=== PATIENT | male | born 1965 ===

== ENCOUNTER 2017-09-08 02:35 | Emergency (ER) | payer OTHER ==
[2017-09-08 02:36] VITALS: BMI 25.0
--- NOTE | 2017-09-08 02:43 | C.PDOC ---
History Of Present Illness 51 year old male is brought to the ED by EMS for evaluation. Patient is intoxicated states he drank red wine today, that he is an alcoholic as well. Patient denies SI/HI, hallucinations, CP, SOB, fever, chills. Time Seen by Provider: 09/08/17 02:42 Chief Complaint (Nursing): Substance Abuse History Per: Patient, EMS History/Exam Limitations: intoxication Onset/Duration Of Symptoms: Hrs Current Symptoms Are (Timing): Still Present Suicide/Self Injury Attempted (Context): None Modifying Factor(s): Alcohol Associated Symptoms: denies: Depression, Suicidal Thoughts, Suicidal Plan Involuntary Hold By: None Recent travel outside of the [place]: No Additional History Per: Patient, EMS Past Medical History Reviewed: Historical Data, Nursing Documentation, Vital Signs Vital Signs: Last Vital Signs Temp 100.1 F H 09/08/17 02:43 Pulse 110 H 09/08/17 02:43 Resp 16 09/08/17 02:43 BP 152/90 H 09/08/17 02:43 Pulse Ox 96 09/08/17 03:04 - Medical History PMH: Anxiety, Kidney Stones, Chronic Kidney Disease Denies: Diabetes, Hepatitis, HIV, HTN, Seizures, Sexually Transmitted Disease Surgical History: No Surg Hx Family History: States: Unknown Family Hx - Social History Hx Alcohol Use: Yes Hx Substance Use: Yes (COCAINE SNIFF) Review Of Systems Constitutional: Negative for: Fever, Chills Cardiovascular: Negative for: Chest Pain Respiratory: Negative for: Shortness of Breath Gastrointestinal: Negative for: Nausea, Vomiting Skin: Negative for: Rash Psych: Negative for: Depression, Suicidal ideation Physical Exam - Physical Exam Appears: Non-toxic, No Acute Distress Skin: Warm, Dry Head: Normacephalic Eye(s): bilateral: Normal Inspection Oral Mucosa: Moist Neck: Supple Chest: Symmetrical Cardiovascular: Rhythm Regular Respiratory: No Rales, No Rhonchi, No Wheezing Gastrointestinal/Abdominal: Soft, No Tenderness, No Guarding, No Rebound Extremity: Bilateral: Atraumatic, Normal Color And Temperature, Normal ROM Neurological/Psych: Oriented x3, Normal Speech Gait: Steady ED Course And Treatment O2 Sat by Pulse Oximetry: 96 (ON RA) Pulse Ox Interpretation: Normal Reevaluation Time: 04:49 Reassessment Condition: Improved Disposition Counseled Patient/Family Regarding: Studies Performed, Diagnosis, Need For Followup - Disposition Referrals: [facility] [Outside] Disposition: HOME/ ROUTINE Disposition Time: 02:43 Condition: FAIR Instructions: Alcohol Abuse and Alcoholism (DC) Forms: [facility] (Frisian) - Clinical Impression Clinical Impression: Alcohol abuse with intoxication - Scribe Statement The provider has reviewed the documentation as recorded by the Scribe Glen Grimes All medical record entries made by the Scribe were at my direction and personally dictated by me. I have reviewed the chart and agree that the record accurately reflects my personal performance of the history, physical exam, medical decision making, and the department course for this patient. I have also personally directed, reviewed, and agree with the discharge instructions and disposition.
[2017-09-08 02:45] VITALS: RESP 16; O2SAT 96
[2017-09-08 04:53] VITALS: BP 137/85; PULSE 98; TEMP 98.9
== END 2017-09-08 05:20 | disposition home or self-care (01) ==
LOC: C.ER 02:35
DX: F10.129 Alcohol abuse with intoxication, unspecified (principal); N18.9 Chronic kidney disease, unspecified

== ENCOUNTER 2017-09-11 05:36 | Emergency (ER) | payer OTHER ==
[2017-09-11 05:37] VITALS: BMI 25.0
[2017-09-11 05:47] VITALS: RESP 18
--- NOTE | 2017-09-11 05:57 | C.PDOC ---
History Of Present Illness Patient presents to the ER via EMS for acute ETOH intoxication. Patient is requesting a place to stay until sober. Denies any physical complaints at this time. Time Seen by Provider: 09/11/17 05:56 Chief Complaint (Nursing): Substance Abuse History Per: Patient History/Exam Limitations: no limitations Onset/Duration Of Symptoms: Hrs Current Symptoms Are (Timing): Still Present Suicide/Self Injury Attempted (Context): None Modifying Factor(s): Alcohol Severity: None Pain Scale Rating Of: 0 Associated Symptoms: denies: Depression, Suicidal Thoughts Involuntary Hold By: None Recent travel outside of the [place]: No Past Medical History Reviewed: Historical Data, Nursing Documentation, Vital Signs Vital Signs: Last Vital Signs Temp 99.9 F H 09/11/17 05:43 Pulse 119 H 09/11/17 05:43 Resp 18 09/11/17 05:43 BP 150/96 H 09/11/17 05:43 Pulse Ox 97 09/11/17 05:57 - Medical History PMH: Anxiety, Diverticulitis, Kidney Stones, Chronic Kidney Disease Surgical History: No Surg Hx Family History: States: No Known Family Hx - Social History Hx Alcohol Use: Yes Hx Substance Use: Yes (COCAINE SNIFF) Review Of Systems Constitutional: Negative for: Fever, Chills Cardiovascular: Negative for: Chest Pain, Palpitations Respiratory: Negative for: Cough, Shortness of Breath Gastrointestinal: Negative for: Nausea, Vomiting Physical Exam - Physical Exam Appears: Non-toxic, Other (ETOH on breath) Skin: Warm, Dry Head: Normacephalic Oral Mucosa: Moist Chest: Symmetrical, No Tenderness Cardiovascular: Rhythm Regular Respiratory: No Rales, No Rhonchi, No Wheezing Gastrointestinal/Abdominal: Soft, No Tenderness Neurological/Psych: Oriented x3 ED Course And Treatment O2 Sat by Pulse Oximetry: 97 (Room air) Pulse Ox Interpretation: Normal Disposition Counseled Patient/Family Regarding: Studies Performed, Diagnosis - Disposition Disposition Time: 05:56 Condition: FAIR Instructions: Alcohol Abuse and Alcoholism (DC) Forms: [facility] (Nepali) - Clinical Impression Clinical Impression: Alcohol abuse with intoxication - Scribe Statement The provider has reviewed the documentation as recorded by the Scribe Walt Chau All medical record entries made by the Scribe were at my direction and personally dictated by me. I have reviewed the chart and agree that the record accurately reflects my personal performance of the history, physical exam, medical decision making, and the department course for this patient. I have also personally directed, reviewed, and agree with the discharge instructions and disposition. Physician Patient Turnover Patient Signed Over To: Carri Kang Handoff Comments: pending sobriety and dispostion
[2017-09-11 07:32] VITALS: BP 134/88; PULSE 96; TEMP 99; O2SAT 96
--- NOTE | 2017-09-11 18:07 | CARD ---
APPROVED REPORT EKG Measurement Heart [id number] NC [id number] [id number] <Conclusion> Normal sinus rhythm Left bundle branch block Abnormal ECG
== END 2017-09-11 07:25 | disposition left against medical advice (07) ==
LOC: C.ER 05:36
DX: F10.129 Alcohol abuse with intoxication, unspecified (principal); F41.9 Anxiety disorder, unspecified

== ENCOUNTER 2017-09-30 22:30 | Emergency (ER) | payer OTHER ==
[2017-09-30 22:31] VITALS: BMI 25.0
[2017-09-30 22:50] VITALS: TEMP 98.9
--- NOTE | 2017-10-01 00:11 | C.PDOC ---
History Of Present Illness <Nicola Lopez - Last Filed: 10/01/17 01:05> <Kajal Burnette - Last Filed: 10/01/17 06:56> <Dakotah Dillon M - Last Filed: 10/01/17 09:14> 51 y/o male presents to ED for intoxication at home. Patient's mother called ambulance for patient. This is the patient's 4th visit to the ER this month for intoxication. Patient is positive for Benzo and his alcohol level is at 250. Denies injuries or physical complaints. (Nicola Lopez) History Per: Patient, EMS History/Exam Limitations: no limitations Onset/Duration Of Symptoms: Hrs Current Symptoms Are (Timing): Still Present Suicide/Self Injury Attempted (Context): None Modifying Factor(s): Alcohol Associated Symptoms: denies: Anger, Suicidal Thoughts, Suicidal Plan Recent travel outside of the [place]: No <Nicola Lopez - Last Filed: 10/01/17 01:05> <aKjal Burnette - Last Filed: 10/01/17 06:56> <Dakotah Dillon M - Last Filed: 10/01/17 09:14> Time Seen by Provider: 09/30/17 22:40 Chief Complaint (Nursing): Substance Abuse Past Medical History Reviewed: Historical Data, Nursing Documentation, Vital Signs - Medical History PMH: Anxiety, Diverticulitis, Kidney Stones, Chronic Kidney Disease Surgical History: Appendectomy Family History: States: Unknown Family Hx - Social History Hx Alcohol Use: Yes Hx Substance Use: Yes - Immunization History Hx Tetanus Toxoid Vaccination: No Hx Influenza Vaccination: No Hx Pneumococcal Vaccination: No <Nicola Lopez - Last Filed: 10/01/17 01:05> Vital Signs: Last Vital Signs Temp 98.9 F 09/30/17 22:46 Pulse 98 H 10/01/17 07:01 Resp 16 10/01/17 07:01 BP 136/89 10/01/17 07:01 Pulse Ox 95 10/01/17 07:01 Review Of Systems Constitutional: Negative for: Fever, Chills Gastrointestinal: Negative for: Nausea, Vomiting, Abdominal Pain, Diarrhea Skin: Negative for: Rash Neurological: Negative for: Weakness, Numbness Psych: Negative for: Suicidal ideation <Nicola Lopez - Last Filed: 10/01/17 01:05> Physical Exam - Physical Exam Appears: Non-toxic, No Acute Distress, Other (No injuries or trauma; intoxicated ) Skin: Normal Color, Warm, Dry Head: Atraumatic, Normacephalic Eye(s): bilateral: Normal Inspection, PERRL, EOMI Nose: Normal, No Discharge, No Deformity Oral Mucosa: Moist Neck: Supple Chest: Symmetrical, No Tenderness Cardiovascular: Rhythm Regular, No Murmur Respiratory: Normal Breath Sounds, No Decreased Breath Sounds, No Rales, No Rhonchi, No Wheezing Gastrointestinal/Abdominal: Normal Exam, Soft, No Tenderness, No Distention Extremity: Normal ROM, No Deformity Extremity: Bilateral: Atraumatic, Normal Color And Temperature, Normal ROM Pulses: Left Radial: Normal, Right Radial: Normal Neurological/Psych: Oriented x3, Normal Speech Gait: Steady <Nicola Lopez - Last Filed: 10/01/17 01:05> ED Course And Treatment O2 Sat by Pulse Oximetry: 95 (RA) Pulse Ox Interpretation: Normal <Nicola Lopez - Last Filed: 10/01/17 01:05> Progress <Nicola Lopez - Last Filed: 10/01/17 01:05> <Kajal Burnette - Last Filed: 10/01/17 06:56> <Dakotah Dillon M - Last Filed: 10/01/17 09:14> - Re-Evaluation Re-evaluation Note: 10/01/17 02:18 PT INCREASINGLY UNCOOPERATIVE W STAFF, ELOPEMENT RISK. PERSIST CLIN INTOX W SLURRED SPEECH AND UNSTEADY GAIT. PT UNRESPONSIVE TO MULTIPLE VERBAL INTERVENTION. GEODON TO BE GIVEN. 10/01/17 03:00 NO IMPROVE W GEODON. WILL DOSE ATIVAN. 10/01/17 06:27 PERSIST SOMNALENCE. VSS. AROUSE TO PAIN STIM. 10/01/17 06:56 S/O DR DILLON PENDING SOBRIETY, DISPO (Kajal Burnette) Medical Decision Making <Nicola Lopez - Last Filed: 10/01/17 01:05> <Kajal Burnette - Last Filed: 10/01/17 06:56> <Dakotah Dillon M - Last Filed: 10/01/17 09:14> Medical Decision Making: no labs/w/u required for typical presentation 0000: walked alone to bathroom to urinate successfuly without assistance. 0100: signed over to overnight MD pending dispo in AM (Nicola Lopez) Disposition - Disposition Disposition Time: 01:00 <Nicola Lopez - Last Filed: 10/01/17 01:05> <Kajal Burnette - Last Filed: 10/01/17 06:56> <Dakotah Dillon - Last Filed: 10/01/17 09:14> - Disposition Condition: GOOD Forms: [facility] (Bahraini) - Clinical Impression Clinical Impression: Alcohol abuse - Scribe Statement The provider has reviewed the documentation as recorded by the Scribe <Nicola Lopez - Last Filed: 10/01/17 01:05> <Kajal Burnette - Last Filed: 10/01/17 06:56> <Dakotah Dillon - Last Filed: 10/01/17 09:14> - Scribe Statement Delta Ramos All medical record entries made by the Scribe were at my direction and personally dictated by me. I have reviewed the chart and agree that the record accurately reflects my personal performance of the history, physical exam, medical decision making, and the department course for this patient. I have also personally directed, reviewed, and agree with the discharge instructions and disposition. (Nicola Lopez) Physician Patient Turnover Patient Signed Over To: Kajal Burnette Handoff Comments: dispo in AM when sober- plan to d/c home. <Nicola Lopez - Last Filed: 10/01/17 01:05> Addendum <Nicola Lopez - Last Filed: 10/01/17 01:05> <Dakotah Dillon - Last Filed: 10/01/17 09:14> Addendum: 10/01/17 09:13 received patient in s/o pending sobriety. Patient is ambulating with steady gait. No complaints. Will discharge home to follow up with pmd in 2 days. (Dakotah Dillon) Disposition <Nicola Lopez - Last Filed: 10/01/17 01:05> Disposition Time: 09:14 <Dakotah Dillon - Last Filed: 10/01/17 09:14> Clinical Impression: Alcohol abuse Condition: STABLE Stand Alone Forms: [facility] (Bahraini), General Discharge Instructions
[2017-10-01 09:27] VITALS: BP 130/80; PULSE 73; RESP 20; O2SAT 98
== END 2017-10-01 09:15 | disposition home or self-care (01) ==
LOC: C.ER 22:30
DX: F10.129 Alcohol abuse with intoxication, unspecified (principal); Y90.9 Presence of alcohol in blood, level not specified
CPT/HCPCS: 82948; 96372; 99285; J2060; J3486

== ENCOUNTER 2017-10-01 21:38 | Emergency (ER) | payer OTHER ==
[2017-10-01 21:38] VITALS: BMI 25.0
--- NOTE | 2017-10-01 22:26 | C.PDOC ---
History Of Present Illness <Kajal Burnette - Last Filed: 10/02/17 00:47> <Nicola Lopez E - Last Filed: 10/02/17 04:46> 51 year old male is brought to the ED by EMS for intoxication. Patient has multiple prior visits to the ED for similar presentation. Patient admits to drinking alcohol today. Patient denies SI/HI, hallucinations, other drug abuse. (Vasile,Kajal) History Per: Patient History/Exam Limitations: no limitations Onset/Duration Of Symptoms: Hrs Current Symptoms Are (Timing): Still Present Suicide/Self Injury Attempted (Context): None Modifying Factor(s): Alcohol Associated Symptoms: denies: Depression, Suicidal Thoughts, Suicidal Plan Involuntary Hold By: None Recent travel outside of the [place]: No Additional History Per: Patient, EMS <Kajal Burnette - Last Filed: 10/02/17 00:47> <Nicola Lopez - Last Filed: 10/02/17 04:46> Time Seen by Provider: 10/01/17 22:22 Chief Complaint (Nursing): Substance Abuse Past Medical History Reviewed: Historical Data, Nursing Documentation, Vital Signs - Medical History PMH: Anxiety, Diverticulitis, Kidney Stones, Chronic Kidney Disease Denies: Diabetes, Hepatitis, HIV, HTN, Seizures, Sexually Transmitted Disease Surgical History: Appendectomy Family History: States: Unknown Family Hx - Social History Hx Alcohol Use: Yes Hx Substance Use: Yes - Immunization History Hx Tetanus Toxoid Vaccination: No Hx Influenza Vaccination: No Hx Pneumococcal Vaccination: No <Kajal Burnette - Last Filed: 10/02/17 00:47> Vital Signs: Last Vital Signs Temp 98.9 F 10/01/17 21:46 Pulse 105 H 10/01/17 21:46 Resp 14 10/01/17 21:46 BP 109/74 10/01/17 21:46 Pulse Ox 96 10/02/17 00:47 Review Of Systems Constitutional: Negative for: Fever, Chills Cardiovascular: Negative for: Chest Pain, Palpitations Respiratory: Negative for: Cough, Shortness of Breath Gastrointestinal: Negative for: Nausea, Vomiting, Abdominal Pain Neurological: Negative for: Weakness, Numbness Psych: Negative for: Depression, Suicidal ideation <Kajal Burnette - Last Filed: 10/02/17 00:47> Physical Exam - Physical Exam Appears: Non-toxic, No Acute Distress, Other (intoxicated) Skin: Normal Color, Warm, Dry Head: Atraumatic, Normacephalic Eye(s): bilateral: Normal Inspection Oral Mucosa: Moist Neck: Normal ROM, Supple Chest: Symmetrical Cardiovascular: Rhythm Regular Respiratory: Normal Breath Sounds, No Rales, No Rhonchi, No Wheezing Gastrointestinal/Abdominal: Soft, No Tenderness, No Guarding, No Rebound Extremity: Normal ROM, No Tenderness, No Swelling Neurological/Psych: Oriented x3, Normal Speech Gait: Steady <Kajal Burnette - Last Filed: 10/02/17 00:47> ED Course And Treatment O2 Sat by Pulse Oximetry: 96 (ON RA) Pulse Ox Interpretation: Normal <Kajal Burnette - Last Filed: 10/02/17 00:47> Progress Note: signed over @ 0100, pending sobriety. multiple overnight intoxicated ED evals, including last night. pt given librium 50 mg @ 0130 and 0400 for anxiety and to avoid withdrawal. Repeatedely offered Detox, pt not interested. 0445: asks for d/c <Nicola Lopez - Last Filed: 10/02/17 04:46> Medical Decision Making <Kajal Burnette - Last Filed: 10/02/17 00:47> <Nicola Lopez - Last Filed: 10/02/17 04:46> Medical Decision Making: Impression: intoxicated (Kajal Burnette) Disposition - Disposition Disposition Time: 01:00 <Kajal Burnette - Last Filed: 10/02/17 00:47> Doctor Will See Patient In The: Office Counseled Patient/Family Regarding: Studies Performed, Diagnosis <Nicola Lopez - Last Filed: 10/02/17 04:46> - Disposition Disposition: HOME/ ROUTINE Condition: GOOD Forms: [facility] (Central African) - Clinical Impression Clinical Impression: Alcohol intoxication, Alcohol abuse with intoxication - Scribe Statement The provider has reviewed the documentation as recorded by the Scribe <Kajal Burnette - Last Filed: 10/02/17 00:47> <Nicola Lopez - Last Filed: 10/02/17 04:46> - Scribe Statement Glen Grimes All medical record entries made by the Scribe were at my direction and personally dictated by me. I have reviewed the chart and agree that the record accurately reflects my personal performance of the history, physical exam, medical decision making, and the department course for this patient. I have also personally directed, reviewed, and agree with the discharge instructions and disposition. (Kajal Burnette) Physician Patient Turnover Patient Signed Over To: Nicola Lopez Handoff Comments: FU SOBRIETY, DISPO <Kajal Burnette - Last Filed: 10/02/17 00:47>
[2017-10-01 23:42] VITALS: TEMP 98.9; O2SAT 96
[2017-10-02 04:48] VITALS: BP 133/89; PULSE 90; RESP 20
== END 2017-10-02 04:53 | disposition home or self-care (01) ==
LOC: C.ER 21:38
DX: F10.129 Alcohol abuse with intoxication, unspecified (principal)

== ENCOUNTER 2017-10-10 05:22 | Inpatient (IN) | payer OTHER ==
[2017-10-10 05:22] VITALS: BMI 25.0
[2017-10-10] MEDS ORDERED: Tdap Vaccine 0.5 ml Vial (10-64 yrs) IM ONE ×2 (06:07→06:56)
[2017-10-10] MEDS ORDERED: Bacitracin 500 Units/gm Oint Foilpak UD TOP ONE (06:07)
--- NOTE | 2017-10-10 06:07 | C.PDOC ---
History Of Present Illness 51 year old male with PMHx of ETOH abuse presents to the ED for evaluation. Patient reports he stopped drinking yesterday and also fell and hit his head yesterday as well. Patient c/o sternal chest pain that started today at 03:00 . Patient is asking for something to help him sleep, says he hasn't slept in 2 days. Patient has been seen multiple times in the past for alcohol intoxication , but today he states he did not drink. Patient has abrasions to face and forehead, given recent fall head CT was ordered. Patient neck pain, visual changes, dizziness. pt is a poor historian. Time Seen by Provider: 10/10/17 05:54 Chief Complaint (Nursing): Substance Abuse History Per: Patient History/Exam Limitations: intoxication Onset/Duration Of Symptoms: Hrs Current Symptoms Are (Timing): Still Present Suicide/Self Injury Attempted (Context): None Modifying Factor(s): Alcohol Associated Symptoms: denies: Depression, Suicidal Thoughts, Suicidal Plan Involuntary Hold By: None Recent travel outside of the [place]: No Additional History Per: Patient Past Medical History Reviewed: Historical Data, Nursing Documentation, Vital Signs Vital Signs: Last Vital Signs Temp 100.1 F H 10/10/17 05:42 Pulse 122 H 10/10/17 05:42 Resp 22 10/10/17 05:42 BP 138/99 H 10/10/17 05:42 Pulse Ox 97 10/10/17 07:21 - Medical History PMH: Anxiety, Diverticulitis, Kidney Stones, Chronic Kidney Disease Denies: Diabetes, Hepatitis, HIV, HTN, Seizures, Sexually Transmitted Disease Surgical History: Appendectomy Family History: States: Unknown Family Hx - Social History Hx Alcohol Use: Yes Hx Substance Use: Yes - Immunization History Hx Tetanus Toxoid Vaccination: No Hx Influenza Vaccination: No Hx Pneumococcal Vaccination: No Review Of Systems Constitutional: Negative for: Fever, Chills Cardiovascular: Positive for: Chest Pain. Negative for: Palpitations Respiratory: Negative for: Cough, Shortness of Breath Gastrointestinal: Positive for: Nausea. Negative for: Vomiting, Abdominal Pain Genitourinary: Negative for: Dysuria Musculoskeletal: Negative for: Neck Pain Skin: Positive for: Other (abrasions). Negative for: Rash Neurological: Negative for: Weakness, Headache, Dizziness Psych: Negative for: Depression, Suicidal ideation Physical Exam - Physical Exam Appears: Non-toxic, Other (unkempt, odor of etoh present) Skin: Normal Color, Warm, Dry, Other (multiple abrasion on various stages of healing located on hands, legs, face) Head: Normacephalic, Abrasion (face and forehead) Eye(s): bilateral: Normal Inspection, PERRL, EOMI Oral Mucosa: Moist Tongue: Other (tremors to tongue) Neck: Normal ROM, No Midline Cervical Tenderness, Supple Chest: Symmetrical Cardiovascular: Rhythm Regular (tachycardic) Respiratory: Normal Breath Sounds, No Rales, No Rhonchi, No Wheezing Gastrointestinal/Abdominal: Soft, No Tenderness, No Guarding, No Rebound Back: Other (erythema to left mid back, non tender) Extremity: Normal ROM, No Tenderness, Capillary Refill (< 2 seconds), Swelling ( left elbow with ), Other (tremors to hands) Pulses: Left Radial: Normal, Right Radial: Normal, Left Dorsalis Pedis: Normal, Right Dorsalis Pedis: Normal Neurological/Psych: Oriented x3, Normal Speech, Normal Cognition, Normal Motor, Normal Sensation, Other (bilateral hands shaking) Gait: Steady ED Course And Treatment - Laboratory Results Result Diagrams: 10/10/17 06:26 0818 06:26 ECG: Interpreted By Me, Viewed By Me ECG Rhythm: Sinus Tachycardia, L BBB ECG Interpretation: No Changes From Prior Rate From EC (BPM) O2 Sat by Pulse Oximetry: 97 (ON RA) Pulse Ox Interpretation: Normal Medical Decision Making Medical Decision Making: Impression: abrasions, chest pain, s/p fall, ?etoh w/d; pt tachycardic wiht low grade fever- sepsis screening labs. Plan: * VBG * CT head * EKG * Labs * CXR * Tetanus immunization * Bacitracin * IV fluids * Blood culture * Left elbow X-Ray * UA \ 0636 code sepsis called. [address] Schwartz; discussed with Dr Flores. 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 - Scribe Statement The provider has reviewed the documentation as recorded by the Scribe Glen Grimes All medical record entries made by the Scribe were at my direction and personally dictated by me. I have reviewed the chart and agree that the record accurately reflects my personal performance of the history, physical exam, medical decision making, and the department course for this patient. I have also personally directed, reviewed, and agree with the discharge instructions and disposition. Physician Patient Turnover Patient Signed Over To: Courtney Barraza Handoff Comments: f/u with metal ceiling hanger and admit to appopriate
[2017-10-10] MEDS ORDERED: Multivitamin (MVI) 10 ML, Thiamine 100 MG, Folic Acid 1 MG in Sodium Chloride 0.9% 1,00... IV ONE (06:08)
[2017-10-10 06:29] LABS: BASO % 0.3 % (0.0-2.0); EOS % 0.3 % (0.0-4.0); HEMOGLOBIN 13.3 g/dL (12.0-18.0); LYMPH # 0.6 K/uL (1.0-4.3); LYMPH % 11.5 % (20.0-40.0); MEAN CELL VOLUME 93.3 fL (80.0-94.0); MEAN CORPUSCULAR HGB CONC 35.4 g/dL (33.0-37.0); MEAN PLATELET VOLUME 9.1 fL (7.2-11.7); MONO # 0.5 K/uL (0.0-0.8); MONO % 10.6 % (0.0-10.0); NEUT # 3.8 K/uL (1.8-7.0); NEUT % 77.3 % (50.0-75.0); NRBC % 0.1 % (0.0-2.0); RBC 4.04 Mil/uL (4.40-5.90); RED CELL DISTRIBUTION WIDTH 14.6 % (11.5-14.5); WHITE BLOOD COUNT 4.9 K/uL (4.8-10.8)
[2017-10-10 06:31] LABS: VENOUS BLOOD GAS BASE EXCESS 2.9 mmol/L (0.0-2.0); VENOUS BLOOD GAS PCO2 34 mmHg (40-60); VENOUS BLOOD GAS PO2 40 mm/Hg (30-55); VENOUS BLOOD PH 7.49 (7.32-7.43)
[2017-10-10] MEDS ORDERED: Aztreonam 2 GM in Sodium Chloride 0.9% 100 ML IVPB STA (06:37)
[2017-10-10] MEDS ORDERED: Vancomycin 1 gm/NS 200 ml 1 GM/200 ML BAG IVPB STA (06:37)
[2017-10-10] MEDS ORDERED: Sodium Chloride 0.9% 1,000 ML IV ONE (06:37)
[2017-10-10] MEDS ORDERED: Sodium Chloride 0.9% 1,000 ML ONE (06:40)
[2017-10-10] MEDS ORDERED: Potassium Chloride 20 mEq ER Tab PO STA (06:44)
[2017-10-10] MEDS ORDERED: Bacitracin 500 Units/gm Oint Foilpak UD ONE (06:55)
[2017-10-10 06:58] LABS: ALB/GLOB RATIO 1.3 (1.0-2.1); ALT/SGPT 205 U/L (21-72); AST/SGOT 629 U/L (17-59); BLOOD UREA NITROGEN 5 mg/dL (9-20); CALCIUM 7.9 mg/dl (8.6-10.4); GFR AFRICAN-AMERICAN > 60; GFR NON-AFRICAN AMERICAN > 60
[2017-10-10] MEDS ORDERED: Magnesium Sulfate 1 gm in D5W 1 GM/100 ML BAG IVPB ONE ×2 (07:02→08:40)
[2017-10-10] MEDS ORDERED: Benzoin Compound Tincture (60 ml) ONE (07:15)
[2017-10-10] MEDS: Magnesium Sulfate 1 gm in D5W 1 GM/100 ML BAG IVPB ONE ×2 (07:35→09:46)
[2017-10-10 07:53] LABS: PROTHROMBIN TIME 19.1 SECONDS (9.7-12.2)
[2017-10-10 07:54] LABS: INR 1.7
--- NOTE | 2017-10-10 08:22 | RAD ---
Date of service: 10/10/2017 PROCEDURE: CHEST RADIOGRAPH, 1 VIEW HISTORY: chest pain COMPARISON: None available. FINDINGS: LUNGS: The lungs are well inflated and clear. PLEURA: No pneumothorax or pleural fluid seen. CARDIOVASCULAR: Normal. OSSEOUS STRUCTURES: No significant abnormalities. VISUALIZED UPPER ABDOMEN: Normal. OTHER FINDINGS: None. IMPRESSION: No active pulmonary disease.
--- NOTE | 2017-10-10 08:28 | RAD ---
Date of service: 10/10/2017 PROCEDURE: Radiographs of the left elbow. HISTORY: abrasion and swelling COMPARISON: No prior. FINDINGS: BONES: Bone alignment and mineralization are normal. There is no acute displaced fracture or bone destruction. 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 SOFT TISSUES: Normal. JOINT EFFUSION: None. OTHER FINDINGS: None IMPRESSION: No acute fracture or dislocation.
[2017-10-10 08:36] LABS: SQUAMOUS EPITHIAL < 1 /hpf (0-5); URINE BILIRUBIN NEGATIVE (NEGATIVE); URINE BLOOD 1+ (NEGATIVE); URINE CLARITY Clear (Clear); URINE COLOR Yellow (YELLOW); URINE GLUCOSE (UA) NORMAL (Normal); URINE LEUKOCYTE ESTERASE NEG Leu/uL (Negative); URINE PROTEIN NEGATIVE (NEGATIVE)
[2017-10-10] MEDS: Sodium Chloride 0.9% 1,000 ML IV SCH ×2 (08:40→16:57)
[2017-10-10 08:57] LABS: BARBITURATES, UR NEGATIVE (NEGATIVE); OPIATES, UR NEGATIVE (NEGATIVE); PHENCYCLIDINE, UR NEGATIVE (NEGATIVE)
--- NOTE | 2017-10-10 09:08 | CT ---
Date of service: 10/10/2017 PROCEDURE: CT HEAD WITHOUT CONTRAST. HISTORY: ETOH abuse, Fall COMPARISON: None available. TECHNIQUE: Axial computed tomography images were obtained through the head/brain without intravenous contrast. Radiation dose: Total exam DLP = 1046.45 mGy-cm. This CT exam was performed using one or more of the following dose reduction techniques: Automated exposure control, adjustment of the mA and/or kV according to patient size, and/or use of iterative reconstruction technique. FINDINGS: HEMORRHAGE: No intracranial hemorrhage. BRAIN: Mccain-white matter differentiation is preserved. There is no mass, mass effect or abnormal extra-axial fluid collection. There is no territorial infarction. The midline sagittal structures are normal. VENTRICLES: There is mild age advanced global parenchymal volume loss and proportionate enlargement of the ventricles and cortical sulci. CALVARIUM: There is no calvarial fracture or extracranial soft tissue swelling. PARANASAL SINUSES: Predominantly clear. MASTOID AIR CELLS: Predominantly clear. OTHER FINDINGS: None. IMPRESSION: No acute intracranial abnormality. Mild global parenchymal volume loss, advanced for the patient's age. A preliminary report was provided by [employer] services.
[2017-10-10 09:27] LABS: BENZODIAZEPINES, UR POSITIVE (NEGATIVE)
--- NOTE | 2017-10-10 09:35 | CP.PCM.HP ---
History of Present Illness - History of Present Illness History of Present Illness: hx of alc abuse fell has abrasion face and l elbow has chest pain today didnot sleep for 2 days Present on Admission - Present on Admission Any Indicators Present on Admission: No Review of Systems - Review of Systems Systems not reviewed;Unavailable: Acuity of Condition - Constitutional Constitutional: Fatigue - EENT Eyes: As Per HPI Ears: As Per HPI Nose/Mouth/Throat: As Per HPI - Cardiovascular Cardiovascular: Chest Pain at Rest - Respiratory Respiratory: Dyspnea on Exertion - Gastrointestinal Gastrointestinal: As Per HPI - Genitourinary Genitourinary: As Per HPI - Musculoskeletal Additional comments: pain l elbo - Neurological Neurological: Frequent Falls - Psychiatric Psychiatric: As Per HPI - Endocrine Endocrine: As Per HPI - Hematologic/Lymphatic Hematologic: As Per HPI Past Patient History - Infectious Disease Hx of Infectious Diseases: None - Past Medical History & Family History Past Medical History?: Yes - Past Social History Smoking Status: Never Smoked - CARDIAC Hx Hypertension: No - PULMONARY Hx Tuberculosis: No - NEUROLOGICAL Hx Seizures: No - HEENT Hx HEENT Problems: No - RENAL Hx Chronic Kidney Disease: Yes Hx Kidney Stones: Yes - ENDOCRINE/METABOLIC Hx Endocrine Disorders: No - HEMATOLOGICAL/ONCOLOGICAL Hx Human Immunodeficiency Virus (HIV): No - INTEGUMENTARY Hx Dermatological Problems: No - MUSCULOSKELETAL/RHEUMATOLOGICAL Hx Falls: No - GASTROINTESTINAL Hx Diverticulitis: Yes - GENITOURINARY/GYNECOLOGICAL Hx Sexually Transmitted Disorders: No - PSYCHIATRIC Hx Anxiety: Yes Hx Substance Use: Yes - SURGICAL HISTORY Hx Appendectomy: Yes - ANESTHESIA Hx Anesthesia: Yes Hx Anesthesia Reactions: No Hx Malignant Hyperthermia: No Meds Allergies/Adverse Reactions: Allergies Allergy/AdvReac Type Severity Reaction Status Date / Time No Known Allergies Allergy Verified 10/01/17 21:49 Physical Exam - Constitutional Appears: In Acute Distress - Head Exam Head Exam: ATRAUMATIC - Eye Exam Eye Exam: Normal appearance Pupil Exam: PERRL - ENT Exam ENT Exam: Mucous Membranes Moist - Neck Exam Neck exam: Positive for: Normal Inspection - Respiratory Exam Respiratory Exam: Clear to Auscultation Bilateral - Cardiovascular Exam Cardiovascular Exam: REGULAR RHYTHM - GI/Abdominal Exam GI & Abdominal Exam: Normal Bowel Sounds - Rectal Exam Rectal Exam: Deferred - Exam Exam: NORMAL INSPECTION - Extremities Exam Extremities exam: Positive for: normal inspection - Back Exam Back exam: NORMAL INSPECTION - Neurological Exam Neurological exam: Alert, Oriented x3 - Psychiatric Exam Psychiatric exam: Normal Affect - Skin Skin Exam: Normal Color Results - Vital Signs Recent Vital Signs: Last Vital Signs Temp 100.1 F H 10/10/17 05:42 Pulse 106 H 10/10/17 08:15 Resp 18 10/10/17 08:15 BP 111/69 10/10/17 08:15 Pulse Ox 98 10/10/17 08:15 - Labs Result Diagrams: 10/10/17 06:26 10/10/17 06:26 Labs: Laboratory Results - last 24 hr 10/10/17 10/10/17 10/10/17 05:29 06:25 06:26 WBC 4.9 RBC 4.04 L Hgb 13.3 Hct 37.7 MCV 93.3 MCH 33.0 H MCHC 35.4 RDW 14.6 H Plt Count 47 L MPV 9.1 Neut % (Auto) 77.3 H Lymph % (Auto) 11.5 L [place] % (Auto) 10.6 H Eos % (Auto) 0.3 Baso % (Auto) 0.3 Neut # (Auto) 3.8 Lymph # (Auto) 0.6 L [place] # (Auto) 0.5 Eos # (Auto) 0.0 Baso # (Auto) 0.0 PT INR APTT pO2 40 VBG pH 7.49 H VBG pCO2 34 L VBG HCO3 26.7 VBG Total CO2 26.9 VBG O2 Sat (Calc) 80.3 H VBG Base Excess 2.9 H VBG Potassium 2.8 L Sodium 135.0 Chloride 90.0 L Glucose 141 H Lactate 7.6 H* Crit Value Called To Soni brooke/rn Crit Value Called By Marvin scherer/rt Crit Value Read Back Y Blood Gas Notified Time 635 Potassium Carbon Dioxide Anion Gap BUN Creatinine Est GFR ( Amer) Est GFR (Non-Af Amer) POC Glucose (mg/dL) 176 H Random Glucose Calcium Phosphorus Magnesium Total Bilirubin AST ALT Alkaline Phosphatase Troponin I Total Protein Albumin Globulin Albumin/Globulin Ratio Venous Blood Potassium 2.8 L Urine Color Urine Clarity Urine pH Ur Specific [place] Urine Protein Urine Glucose (UA) Urine Ketones Urine Blood Urine Nitrate Urine Bilirubin Urine Urobilinogen Ur Leukocyte Esterase Urine WBC (Auto) Urine RBC (Auto) Ur Squamous Epith Cells Hyaline Casts Urine Opiates Screen Urine Methadone Screen Ur Barbiturates Screen Ur Phencyclidine Scrn Ur Amphetamines Screen U Benzodiazepines Scrn U Oth Cocaine Metabols U Cannabinoids Screen Alcohol, Quantitative 10/10/17 10/10/17 10/10/17 06:26 07:29 07:29 WBC RBC Hgb Hct MCV MCH MCHC RDW Plt Count MPV Neut % (Auto) Lymph % (Auto) [place] % (Auto) Eos % (Auto) Baso % (Auto) Neut # (Auto) Lymph # (Auto) [place] # (Auto) Eos # (Auto) Baso # (Auto) PT 19.1 H INR 1.7 APTT 26 pO2 VBG pH VBG pCO2 VBG HCO3 VBG Total CO2 VBG O2 Sat (Calc) VBG Base Excess VBG Potassium Sodium 133 Chloride 89 L Glucose Lactate Crit Value Called To Crit Value Called By Crit Value Read Back Blood Gas Notified Time Potassium 3.6 Carbon Dioxide 23 Anion Gap 25 H BUN 5 L Creatinine 0.7 L Est GFR ( Amer) > 60 Est GFR (Non-Af Amer) > 60 POC Glucose (mg/dL) Random Glucose 142 H Calcium 7.9 L Phosphorus 2.2 L Magnesium 0.5 L* 0.6 L* Total Bilirubin 5.1 H AST 629 H D ALT 205 H Alkaline Phosphatase 114 Troponin I 0.0550 Total Protein 7.1 Albumin 4.0 Globulin 3.0 Albumin/Globulin Ratio 1.3 Venous Blood Potassium Urine Color Urine Clarity Urine pH Ur Specific [place] Urine Protein Urine Glucose (UA) Urine Ketones Urine Blood Urine Nitrate Urine Bilirubin Urine Urobilinogen Ur Leukocyte Esterase Urine WBC (Auto) Urine RBC (Auto) Ur Squamous Epith Cells Hyaline Casts Urine Opiates Screen Urine Methadone Screen Ur Barbiturates Screen Ur Phencyclidine Scrn Ur Amphetamines Screen U Benzodiazepines Scrn U Oth Cocaine Metabols U Cannabinoids Screen Alcohol, Quantitative < 10 10/10/17 10/10/17 08:22 08:22 WBC RBC Hgb Hct MCV MCH MCHC RDW Plt Count MPV Neut % (Auto) Lymph % (Auto) [place] % (Auto) Eos % (Auto) Baso % (Auto) Neut # (Auto) Lymph # (Auto) [place] # (Auto) Eos # (Auto) Baso # (Auto) PT INR APTT pO2 VBG pH VBG pCO2 VBG HCO3 VBG Total CO2 VBG O2 Sat (Calc) VBG Base Excess VBG Potassium Sodium Chloride Glucose Lactate Crit Value Called To Crit Value Called By Crit Value Read Back Blood Gas Notified Time Potassium Carbon Dioxide Anion Gap BUN Creatinine Est GFR ( Amer) Est GFR (Non-Af Amer) POC Glucose (mg/dL) Random Glucose Calcium Phosphorus Magnesium Total Bilirubin AST ALT Alkaline Phosphatase Troponin I Total Protein Albumin Globulin Albumin/Globulin Ratio Venous Blood Potassium Urine Color Yellow Urine Clarity Clear Urine pH 6.0 Ur Specific [place] 1.008 Urine Protein Negative Urine Glucose (UA) Normal Urine Ketones 1+ H Urine Blood 1+ H Urine Nitrate Negative Urine Bilirubin Negative Urine Urobilinogen 2.0 Ur Leukocyte Esterase Neg Urine WBC (Auto) 1 Urine RBC (Auto) < 1 Ur Squamous Epith Cells < 1 Hyaline Casts 6-10 H Urine Opiates Screen Negative Urine Methadone Screen Negative Ur Barbiturates Screen Negative Ur Phencyclidine Scrn Negative Ur Amphetamines Screen Negative U Benzodiazepines Scrn Positive U Oth Cocaine Metabols Negative U Cannabinoids Screen Negative Alcohol, Quantitative Assessment & Plan - Assessment and Plan (Free Text) Assessment: alc abuse hypomagnesiuam withdrwal chest pain Plan: icucare and psych consult - Date & Time Date: 10/10/17 Time: 09:39
[2017-10-10 10:23] LABS: ABG ALLEN TEST POS; ARTERIAL BLOOD GAS HCO3 28.5 mmol/L (21-28); ARTERIAL BLOOD GAS O2 SAT 99.2 % (95-98); ARTERIAL BLOOD GAS PCO2 31 mm/Hg (35-45); ARTERIAL BLOOD GAS PH 7.54 (7.35-7.45); ARTERIAL BLOOD GAS PO2 112 mm/Hg (80-100); ARTERIAL BLOOD GAS TCO2 27.5 mmol/L (22-28)
[2017-10-10 10:52] LABS: BLOOD UREA NITROGEN 5 mg/dL (9-20); CALCIUM 6.6 mg/dl (8.6-10.4); GFR AFRICAN-AMERICAN > 60; GFR NON-AFRICAN AMERICAN > 60
[2017-10-10 10:59] LABS: CK-MB 4.42 ng/mL (0.0-3.38)
--- NOTE | 2017-10-10 14:22 | CP.PCM.CON ---
<Jevon Randhawa - Last Filed: 10/10/17 17:29> History of Present Illness - History of Present Illness History of Present Illness: Jevon Sydnee DO PGY-1, ICU Consult note for Dr. Miranda CC: shaking, anxiety, chest pain Pt chart and records were reviewed prior to evaluation. This is a 51 year old male with PMH of EtOH abuse, diverticulitis who presented to the ED via EMS with complaints of feeling unsteady and continuously falling after abruptly stopping alcohol consumption "yesterday (10/09) at lunch." Since then, he states that he has been falling while ambulating in his house. Pt also reports "getting drunk" 2 days ago and falling head first on the ground. Pt states that he remembers the fall and all events leading up to and after the fall, but needed the help of his father to help him up. He also endorses intermittent episodes of watery, nonbloody vomiting and watery nonbloody diarrhea for the past 3 months. Last episode was at 3 am. At 0636, Code sepsis was called due to tachycardia and oral temperature of 100.1 degrees Farenheit. In the ED, pt was treated with IVF, vancomycin, magnesium, ativan and banana bag. ICU is consulted for alcohol withdrawal management. Pt was seen and examined at bedside. He is anxious, and visibly shaking his upper extremities throughout the interview. He is complaining of chest pain at this time; described as 8/10, non radiating pain that feels "heavy and that someone is sitting on his chest." Pt has been gradually worsening since 3 am. He denies seizure activity, fever, chills, dizziness, lightheadedness, shortness of breath, abdominal pain, nausea, leg swelling, numbness, tingling. A 12-point ROS was reviewed and is otherwise unremarkable. PMHx: as above PSH: resection due to diverticulitis (1996), appendectomy (1996) Meds: None Allx: NKDA Social: Pt reports that he recently lost his job. Pt reports drinking bottle of wine in the morning and large bottle of tequila at lunch. Denies illicit drug use or smoking Review of Systems - Review of Systems All systems: reviewed and no additional remarkable complaints except (as per HPI ) Past Patient History - Infectious Disease Hx of Infectious Diseases: None - Past Medical History & Family History Past Medical History?: Yes - Past Social History Smoking Status: Never Smoked - CARDIAC Hx Hypertension: No - PULMONARY Hx Tuberculosis: No - NEUROLOGICAL Hx Seizures: No - HEENT Hx HEENT Problems: No - RENAL Hx Chronic Kidney Disease: Yes Hx Kidney Stones: Yes - ENDOCRINE/METABOLIC Hx Endocrine Disorders: No - HEMATOLOGICAL/ONCOLOGICAL Hx Human Immunodeficiency Virus (HIV): No - INTEGUMENTARY Hx Dermatological Problems: No - MUSCULOSKELETAL/RHEUMATOLOGICAL Hx Falls: No - GASTROINTESTINAL Hx Diverticulitis: Yes - GENITOURINARY/GYNECOLOGICAL Hx Sexually Transmitted Disorders: No - PSYCHIATRIC Hx Anxiety: Yes Hx Substance Use: Yes - SURGICAL HISTORY Hx Appendectomy: Yes - ANESTHESIA Hx Anesthesia: Yes Hx Anesthesia Reactions: No Hx Malignant Hyperthermia: No Meds Allergies/Adverse Reactions: Allergies Allergy/AdvReac Type Severity Reaction Status Date / Time No Known Allergies Allergy Verified 10/01/17 21:49 - Medications Medications: Current Medications Sodium Chloride (Sodium Chloride 0.9%) 1,000 mls @ 125 mls/hr IV .Q8H ILDEFONSO Last Admin: 10/10/17 08:40 Dose: 125 mls/hr Ibuprofen (Motrin Tab) 400 mg PO Q6 PRN PRN Reason: Headache Lorazepam (Ativan) 1 mg IVP Q4H PRN PRN Reason: Anxiety Physical Exam - Constitutional Appears: Non-toxic, Agitated - Head Exam Head Exam: NORMOCEPHALIC Additional comments: pt has an abrasion on his forehead; no active bleeding - Eye Exam Eye Exam: EOMI, Normal appearance, PERRL. absent: Periorbital swelling Pupil Exam: NORMAL ACCOMODATION - ENT Exam ENT Exam: Mucous Membranes Dry - Neck Exam Neck exam: Positive for: Normal Inspection - Respiratory Exam Respiratory Exam: Chest Wall Tenderness (left ribs 2-4 on palpation), Clear to Auscultation Bilateral, NORMAL BREATHING PATTERN - Cardiovascular Exam Cardiovascular Exam: REGULAR RHYTHM, +S1, +S2 - GI/Abdominal Exam GI & Abdominal Exam: Normal Bowel Sounds, Soft, Tenderness (mild diffuse tenderness) - Extremities Exam Extremities exam: Positive for: normal capillary refill, tenderness (tenderness to left elbow, (+) multiple abrasions in various stages of healing aong the lower extremities and upper extremities), pedal pulses present. Negative for: pedal edema Additional comments: (+) bilateral upper extremities are shaking when outstretched; (+) 3+ bilateral radial pulses - Back Exam Back exam: NORMAL INSPECTION - Neurological Exam Neurological exam: Alert, Oriented x3 - Psychiatric Exam Psychiatric exam: Anxious - Skin Skin Exam: Normal Color Results - Vital Signs Recent Vital Signs: Last Vital Signs Temp 99.3 F 10/10/17 12:00 Pulse 104 H 10/10/17 12:32 Resp 20 10/10/17 12:00 BP 119/80 10/10/17 12:32 Pulse Ox 96 10/10/17 12:32 - Labs Result Diagrams: 10/10/17 06:26 10/10/17 14:43 Labs: Laboratory Results - last 24 hr 10/10/17 10/10/17 10/10/17 05:29 06:25 06:26 WBC 4.9 RBC 4.04 L Hgb 13.3 Hct 37.7 MCV 93.3 MCH 33.0 H MCHC 35.4 RDW 14.6 H Plt Count 47 L MPV 9.1 Neut % (Auto) 77.3 H Lymph % (Auto) 11.5 L [place] % (Auto) 10.6 H Eos % (Auto) 0.3 Baso % (Auto) 0.3 Neut # (Auto) 3.8 Lymph # (Auto) 0.6 L [place] # (Auto) 0.5 Eos # (Auto) 0.0 Baso # (Auto) 0.0 PT INR APTT Puncture Site pCO2 pO2 40 HCO3 ABG pH ABG Total CO2 ABG O2 Saturation ABG Base Excess [place] Test ABG Potassium VBG pH 7.49 H VBG pCO2 34 L VBG HCO3 26.7 VBG Total CO2 26.9 VBG O2 Sat (Calc) 80.3 H VBG Base Excess 2.9 H VBG Potassium 2.8 L Sodium 135.0 Chloride 90.0 L Glucose 141 H Lactate 7.6 H* Crit Value Called To Soni brooke/rn Crit Value Called By Marvin scherer/rt Crit Value Read Back Y Blood Gas Notified Time 635 Potassium Carbon Dioxide Anion Gap BUN Creatinine Est GFR ( Amer) Est GFR (Non-Af Amer) POC Glucose (mg/dL) 176 H Random Glucose Calcium Phosphorus Magnesium Total Bilirubin AST ALT Alkaline Phosphatase Total Creatine Kinase CK-MB (Mass) Troponin I Total Protein Albumin Globulin Albumin/Globulin Ratio Arterial Blood Potassium Venous Blood Potassium 2.8 L Urine Color Urine Clarity Urine pH Ur Specific [place] Urine Protein Urine Glucose (UA) Urine Ketones Urine Blood Urine Nitrate Urine Bilirubin Urine Urobilinogen Ur Leukocyte Esterase Urine WBC (Auto) Urine RBC (Auto) Ur Squamous Epith Cells Hyaline Casts Urine Opiates Screen Urine Methadone Screen Ur Barbiturates Screen Ur Phencyclidine Scrn Ur Amphetamines Screen U Benzodiazepines Scrn U Oth Cocaine Metabols U Cannabinoids Screen Alcohol, Quantitative 10/10/17 10/10/17 10/10/17 06:26 07:29 07:29 WBC RBC Hgb Hct MCV MCH MCHC RDW Plt Count MPV Neut % (Auto) Lymph % (Auto) [place] % (Auto) Eos % (Auto) Baso % (Auto) Neut # (Auto) Lymph # (Auto) [place] # (Auto) Eos # (Auto) Baso # (Auto) PT 19.1 H INR 1.7 APTT 26 Puncture Site pCO2 pO2 HCO3 ABG pH ABG Total CO2 ABG O2 Saturation ABG Base Excess [place] Test ABG Potassium VBG pH VBG pCO2 VBG HCO3 VBG Total CO2 VBG O2 Sat (Calc) VBG Base Excess VBG Potassium Sodium 133 Chloride 89 L Glucose Lactate Crit Value Called To Crit Value Called By Crit Value Read Back Blood Gas Notified Time Potassium 3.6 Carbon Dioxide 23 Anion Gap 25 H BUN 5 L Creatinine 0.7 L Est GFR ( Amer) > 60 Est GFR (Non-Af Amer) > 60 POC Glucose (mg/dL) Random Glucose 142 H Calcium 7.9 L Phosphorus 2.2 L Magnesium 0.5 L* 0.6 L* Total Bilirubin 5.1 H AST 629 H D ALT 205 H Alkaline Phosphatase 114 Total Creatine Kinase CK-MB (Mass) Troponin I 0.0550 Total Protein 7.1 Albumin 4.0 Globulin 3.0 Albumin/Globulin Ratio 1.3 Arterial Blood Potassium Venous Blood Potassium Urine Color Urine Clarity Urine pH Ur Specific [place] Urine Protein Urine Glucose (UA) Urine Ketones Urine Blood Urine Nitrate Urine Bilirubin Urine Urobilinogen Ur Leukocyte Esterase Urine WBC (Auto) Urine RBC (Auto) Ur Squamous Epith Cells Hyaline Casts Urine Opiates Screen Urine Methadone Screen Ur Barbiturates Screen Ur Phencyclidine Scrn Ur Amphetamines Screen U Benzodiazepines Scrn U Oth Cocaine Metabols U Cannabinoids Screen Alcohol, Quantitative < 10 10/10/17 10/10/17 10/10/17 08:22 08:22 10:17 WBC RBC Hgb Hct MCV MCH MCHC RDW Plt Count MPV Neut % (Auto) Lymph % (Auto) [place] % (Auto) Eos % (Auto) Baso % (Auto) Neut # (Auto) Lymph # (Auto) [place] # (Auto) Eos # (Auto) Baso # (Auto) PT INR APTT Puncture Site Lra pCO2 31 L pO2 112 H HCO3 28.5 H ABG pH 7.54 H ABG Total CO2 27.5 ABG O2 Saturation 99.2 H ABG Base Excess 4.5 H [place] Test Pos ABG Potassium 2.4 L* VBG pH VBG pCO2 VBG HCO3 VBG Total CO2 VBG O2 Sat (Calc) VBG Base Excess VBG Potassium Sodium 135.0 Chloride 100.0 Glucose 128 H Lactate 1.1 Crit Value Called To Dr sesay Crit Value Called By Curly cho floral associate Crit Value Read Back Y Blood Gas Notified Time 1022 Potassium Carbon Dioxide Anion Gap BUN Creatinine Est GFR ( Amer) Est GFR (Non-Af Amer) POC Glucose (mg/dL) Random Glucose Calcium Phosphorus Magnesium Total Bilirubin AST ALT Alkaline Phosphatase Total Creatine Kinase CK-MB (Mass) Troponin I Total Protein Albumin Globulin Albumin/Globulin Ratio Arterial Blood Potassium 2.4 L* Venous Blood Potassium Urine Color Yellow Urine Clarity Clear Urine pH 6.0 Ur Specific [place] 1.008 Urine Protein Negative Urine Glucose (UA) Normal Urine Ketones 1+ H Urine Blood 1+ H Urine Nitrate Negative Urine Bilirubin Negative Urine Urobilinogen 2.0 Ur Leukocyte Esterase Neg Urine WBC (Auto) 1 Urine RBC (Auto) < 1 Ur Squamous Epith Cells < 1 Hyaline Casts 6-10 H Urine Opiates Screen Negative Urine Methadone Screen Negative Ur Barbiturates Screen Negative Ur Phencyclidine Scrn Negative Ur Amphetamines Screen Negative U Benzodiazepines Scrn Positive U Oth Cocaine Metabols Negative U Cannabinoids Screen Negative Alcohol, Quantitative 10/10/17 10:27 WBC RBC Hgb Hct MCV MCH MCHC RDW Plt Count MPV Neut % (Auto) Lymph % (Auto) [place] % (Auto) Eos % (Auto) Baso % (Auto) Neut # (Auto) Lymph # (Auto) [place] # (Auto) Eos # (Auto) Baso # (Auto) PT INR APTT Puncture Site pCO2 pO2 HCO3 ABG pH ABG Total CO2 ABG O2 Saturation ABG Base Excess [place] Test ABG Potassium VBG pH VBG pCO2 VBG HCO3 VBG Total CO2 VBG O2 Sat (Calc) VBG Base Excess VBG Potassium Sodium 135 Chloride 93 L Glucose Lactate Crit Value Called To Crit Value Called By Crit Value Read Back Blood Gas Notified Time Potassium 2.7 L Carbon Dioxide 30 Anion Gap 14 BUN 5 L Creatinine 0.6 L Est GFR ( Amer) > 60 Est GFR (Non-Af Amer) > 60 POC Glucose (mg/dL) Random Glucose 134 H Calcium 6.6 L Phosphorus Magnesium Total Bilirubin AST ALT Alkaline Phosphatase Total Creatine Kinase 3003 H CK-MB (Mass) 4.42 H Troponin I 0.0590 Total Protein Albumin Globulin Albumin/Globulin Ratio Arterial Blood Potassium Venous Blood Potassium Urine Color Urine Clarity Urine pH Ur Specific [place] Urine Protein Urine Glucose (UA) Urine Ketones Urine Blood Urine Nitrate Urine Bilirubin Urine Urobilinogen Ur Leukocyte Esterase Urine WBC (Auto) Urine RBC (Auto) Ur Squamous Epith Cells Hyaline Casts Urine Opiates Screen Urine Methadone Screen Ur Barbiturates Screen Ur Phencyclidine Scrn Ur Amphetamines Screen U Benzodiazepines Scrn U Oth Cocaine Metabols U Cannabinoids Screen Alcohol, Quantitative Assessment & Plan - Assessment and Plan (Free Text) Assessment: This is a 51 year old male with PMHx of alcohol abuse, diverticulitis who presented to the ED via EMS for complaints of shaking and unsteadiness. Pt is noted to be tremulous in the bilateral upper extremities and is agitated. Pt is noted to have hypokalemic at 2.7, hypochloremic at 93, hypocalcemic at 6.6, hypophosphatemic at 2.2, CPK was 3003. ICU was consulted for cardiovascular and neurological monitoring during management of alcohol withdrawal. Plan: Neuro: - monitor for mental status changes - Head CT (10/10) shows no cute intracranial abnormality. Mild global parenchymal volume loss, advance for the patient's age. - ativan as per CIWA protocol - thiamine, folate - UDS positive for benzodiazepines, alcohol level is less than 10 - psych consulted, recs appreciated Cardio: - pt is tachycardic at 110 with chest pain; pt is normotensive with MAPs in the 80s - EKG shows tachycardia at 121 with LBBB; LBBB is unchanged from prior EKGs - NTG sublingual x1 - ED tropinin is 0.0550;trend trops x3 q6h - CKMB elevated at 4.42; trend x3 q6h - maintain MAP >65 Pulm: - CXR shows no active disease - maintain spo2>95% GI: - regular diet; pt passed bedside swallow eval - transaminitis with normal ALP; likely secondary to alcoholism - f/u liver enzymes - no need for pud ppx at this time as pt does not fulfill criteria for ppx Renal: - BUN/Cr is normal - replete electrolytes as needed; replete magnesium prior to repletion of potassium - pt has poor IV access and will need midline placement; picc team consulted - continue banana bag - maintain euvolemia - CPK is elevated at 3003; likely secondary to fall - f/u repeat cpk - IVF resuscitation with NS ID: - pt afebrile - no signs of infection, no leukocytosis - repeat lactate on ABG is 1.1; prior lactic acidosis is likely due to rhabdomyolysis secondary to fall - f/u BC x 2, urine cx Heme: - thrombocytopenia; chronic, likely secondary to alcoholism - monitor H/H Endo: - maintain euglycemia - as per NICE-SUGAR trial keep glucose <180 MSK - CXR shows no rib fractures - left elbow x-ray shows no fractures - motrin q6h for pain Dispo: monitor alcohol withdrawal symptoms in ICU Case was reviewed and discussed with attending physician, Dr. Miranda <Rahat Miranda - Last Filed: 10/10/17 18:33> Meds - Medications Medications: Current Medications Sodium Chloride (Sodium Chloride 0.9%) 1,000 mls @ 125 mls/hr IV .Q8H ILDEFONSO Last Admin: 10/10/17 08:40 Dose: 125 mls/hr Ibuprofen (Motrin Tab) 400 mg PO Q6 PRN PRN Reason: Headache Last Admin: 10/10/17 14:55 Dose: 400 mg Lorazepam (Ativan) 1 mg IVP Q4H PRN PRN Reason: Anxiety Last Admin: 10/10/17 14:58 Dose: 1 mg Results - Vital Signs Recent Vital Signs: Last Vital Signs Temp 99.3 F 10/10/17 12:00 Pulse 104 H 10/10/17 12:32 Resp 20 10/10/17 12:00 BP 119/80 10/10/17 12:32 Pulse Ox 96 10/10/17 12:32 - Labs Result Diagrams: 10/10/17 06:26 10/10/17 14:43 Labs: Laboratory Results - last 24 hr 10/10/17 10/10/17 10/10/17 05:29 06:25 06:26 WBC 4.9 RBC 4.04 L Hgb 13.3 Hct 37.7 MCV 93.3 MCH 33.0 H MCHC 35.4 RDW 14.6 H Plt Count 47 L MPV 9.1 Neut % (Auto) 77.3 H Lymph % (Auto) 11.5 L [place] % (Auto) 10.6 H Eos % (Auto) 0.3 Baso % (Auto) 0.3 Neut # (Auto) 3.8 Lymph # (Auto) 0.6 L [place] # (Auto) 0.5 Eos # (Auto) 0.0 Baso # (Auto) 0.0 PT INR APTT Puncture Site pCO2 pO2 40 HCO3 ABG pH ABG Total CO2 ABG O2 Saturation ABG Base Excess [place] Test ABG Potassium VBG pH 7.49 H VBG pCO2 34 L VBG HCO3 26.7 VBG Total CO2 26.9 VBG O2 Sat (Calc) 80.3 H VBG Base Excess 2.9 H VBG Potassium 2.8 L Sodium 135.0 Chloride 90.0 L Glucose 141 H Lactate 7.6 H* Crit Value Called To Soni brooke/rn Crit Value Called By Marvin scherer/rt Crit Value Read Back Y Blood Gas Notified Time 635 Potassium Carbon Dioxide Anion Gap BUN Creatinine Est GFR ( Amer) Est GFR (Non-Af Amer) POC Glucose (mg/dL) 176 H Random Glucose Calcium Phosphorus Magnesium Total Bilirubin AST ALT Alkaline Phosphatase Total Creatine Kinase CK-MB (Mass) Troponin I Total Protein Albumin Globulin Albumin/Globulin Ratio Arterial Blood Potassium Venous Blood Potassium 2.8 L Urine Color Urine Clarity Urine pH Ur Specific [place] Urine Protein Urine Glucose (UA) Urine Ketones Urine Blood Urine Nitrate Urine Bilirubin Urine Urobilinogen Ur Leukocyte Esterase Urine WBC (Auto) Urine RBC (Auto) Ur Squamous Epith Cells Hyaline Casts Urine Opiates Screen Urine Methadone Screen Ur Barbiturates Screen Ur Phencyclidine Scrn Ur Amphetamines Screen U Benzodiazepines Scrn U Oth Cocaine Metabols U Cannabinoids Screen Alcohol, Quantitative 10/10/17 10/10/17 10/10/17 06:26 07:29 07:29 WBC RBC Hgb Hct MCV MCH MCHC RDW Plt Count MPV Neut % (Auto) Lymph % (Auto) [place] % (Auto) Eos % (Auto) Baso % (Auto) Neut # (Auto) Lymph # (Auto) [place] # (Auto) Eos # (Auto) Baso # (Auto) PT 19.1 H INR 1.7 APTT 26 Puncture Site pCO2 pO2 HCO3 ABG pH ABG Total CO2 ABG O2 Saturation ABG Base Excess [place] Test ABG Potassium VBG pH VBG pCO2 VBG HCO3 VBG Total CO2 VBG O2 Sat (Calc) VBG Base Excess VBG Potassium Sodium 133 Chloride 89 L Glucose Lactate Crit Value Called To Crit Value Called By Crit Value Read Back Blood Gas Notified Time Potassium 3.6 Carbon Dioxide 23 Anion Gap 25 H BUN 5 L Creatinine 0.7 L Est GFR ( Amer) > 60 Est GFR (Non-Af Amer) > 60 POC Glucose (mg/dL) Random Glucose 142 H Calcium 7.9 L Phosphorus 2.2 L Magnesium 0.5 L* 0.6 L* Total Bilirubin 5.1 H AST 629 H D ALT 205 H Alkaline Phosphatase 114 Total Creatine Kinase CK-MB (Mass) Troponin I 0.0550 Total Protein 7.1 Albumin 4.0 Globulin 3.0 Albumin/Globulin Ratio 1.3 Arterial Blood Potassium Venous Blood Potassium Urine Color Urine Clarity Urine pH Ur Specific [place] Urine Protein Urine Glucose (UA) Urine Ketones Urine Blood Urine Nitrate Urine Bilirubin Urine Urobilinogen Ur Leukocyte Esterase Urine WBC (Auto) Urine RBC (Auto) Ur Squamous Epith Cells Hyaline Casts Urine Opiates Screen Urine Methadone Screen Ur Barbiturates Screen Ur Phencyclidine Scrn Ur Amphetamines Screen U Benzodiazepines Scrn U Oth Cocaine Metabols U Cannabinoids Screen Alcohol, Quantitative < 10 10/10/17 10/10/17 10/10/17 08:22 08:22 10:17 WBC RBC Hgb Hct MCV MCH MCHC RDW Plt Count MPV Neut % (Auto) Lymph % (Auto) [place] % (Auto) Eos % (Auto) Baso % (Auto) Neut # (Auto) Lymph # (Auto) [place] # (Auto) Eos # (Auto) Baso # (Auto) PT INR APTT Puncture Site Lra pCO2 31 L pO2 112 H HCO3 28.5 H ABG pH 7.54 H ABG Total CO2 27.5 ABG O2 Saturation 99.2 H ABG Base Excess 4.5 H [place] Test Pos ABG Potassium 2.4 L* VBG pH VBG pCO2 VBG HCO3 VBG Total CO2 VBG O2 Sat (Calc) VBG Base Excess VBG Potassium Sodium 135.0 Chloride 100.0 Glucose 128 H Lactate 1.1 Crit Value Called To Dr sesay Crit Value Called By Curly cho floral associate Crit Value Read Back Y Blood Gas Notified Time 1022 Potassium Carbon Dioxide Anion Gap BUN Creatinine Est GFR ( Amer) Est GFR (Non-Af Amer) POC Glucose (mg/dL) Random Glucose Calcium Phosphorus Magnesium Total Bilirubin AST ALT Alkaline Phosphatase Total Creatine Kinase CK-MB (Mass) Troponin I Total Protein Albumin Globulin Albumin/Globulin Ratio Arterial Blood Potassium 2.4 L* Venous Blood Potassium Urine Color Yellow Urine Clarity Clear Urine pH 6.0 Ur Specific [place] 1.008 Urine Protein Negative Urine Glucose (UA) Normal Urine Ketones 1+ H Urine Blood 1+ H Urine Nitrate Negative Urine Bilirubin Negative Urine Urobilinogen 2.0 Ur Leukocyte Esterase Neg Urine WBC (Auto) 1 Urine RBC (Auto) < 1 Ur Squamous Epith Cells < 1 Hyaline Casts 6-10 H Urine Opiates Screen Negative Urine Methadone Screen Negative Ur Barbiturates Screen Negative Ur Phencyclidine Scrn Negative Ur Amphetamines Screen Negative U Benzodiazepines Scrn Positive U Oth Cocaine Metabols Negative U Cannabinoids Screen Negative Alcohol, Quantitative 10/10/17 10:27 WBC RBC Hgb Hct MCV MCH MCHC RDW Plt Count MPV Neut % (Auto) Lymph % (Auto) [place] % (Auto) Eos % (Auto) Baso % (Auto) Neut # (Auto) Lymph # (Auto) [place] # (Auto) Eos # (Auto) Baso # (Auto) PT INR APTT Puncture Site pCO2 pO2 HCO3 ABG pH ABG Total CO2 ABG O2 Saturation ABG Base Excess [place] Test ABG Potassium VBG pH VBG pCO2 VBG HCO3 VBG Total CO2 VBG O2 Sat (Calc) VBG Base Excess VBG Potassium Sodium 135 Chloride 93 L Glucose Lactate Crit Value Called To Crit Value Called By Crit Value Read Back Blood Gas Notified Time Potassium 2.7 L Carbon Dioxide 30 Anion Gap 14 BUN 5 L Creatinine 0.6 L Est GFR ( Amer) > 60 Est GFR (Non-Af Amer) > 60 POC Glucose (mg/dL) Random Glucose 134 H Calcium 6.6 L Phosphorus Magnesium Total Bilirubin AST ALT Alkaline Phosphatase Total Creatine Kinase 3003 H CK-MB (Mass) 4.42 H Troponin I 0.0590 Total Protein Albumin Globulin Albumin/Globulin Ratio Arterial Blood Potassium Venous Blood Potassium Urine Color Urine Clarity Urine pH Ur Specific [place] Urine Protein Urine Glucose (UA) Urine Ketones Urine Blood Urine Nitrate Urine Bilirubin Urine Urobilinogen Ur Leukocyte Esterase Urine WBC (Auto) Urine RBC (Auto) Ur Squamous Epith Cells Hyaline Casts Urine Opiates Screen Urine Methadone Screen Ur Barbiturates Screen Ur Phencyclidine Scrn Ur Amphetamines Screen U Benzodiazepines Scrn U Oth Cocaine Metabols U Cannabinoids Screen Alcohol, Quantitative Attending/Attestation - Attestation I have personally seen and examined this patient.: Yes I have fully participated in the care of the patient.: Yes I have reviewed all pertinent clinical information: Yes Notes (Text): 10/10/17 15:01 I have seen and examined the patient. Medical records, lab studies, and imaging were reviewed by me and a management plan was formulated on multidisciplinary rounds with resident Dr. Randhawa. I agree with their documented assessment and plan. Patient p/w with signs of alcohol withdrawal, requiring Ativan IV prn with CIWA protocol monitoring. hypomagnesemia supplemented. Critical Care Time 35 minutes. Multi-disciplinary rounds were performed with house staff, nursing, speech therapy, respiratory therapy, pharmacy and nutrition with integrated input from the primary team/attending and other consulting services. The documented time is cumulative and includes review of patient data/exams/labs/chart review and examination of the patient on rounds and throughout the day; time is exclusive of any procedures or teaching time.
--- NOTE | 2017-10-10 15:22 | PCM.PSYCH ---
Initial Psychiatric Evaluation - Initial Psychiatric Evaluation Type of Admission: Voluntary Legal Status: Capacity Chief Complaint (in patient's own words): I drink alcohol because of women History of Present Illness and Precipitating Events: Psychiatry consult note HPI: Patient is a 51 year old male with history of alcohol abuse who was admitted for complaints of chest pain, found to be have elevated lactate and low magnesium levels, with signs of alcohol withdrawal. Psychiatry consulted for alcohol withdrawal symptoms. Patient is awake, alert, able to have full conversation. He states he drank excessive alcohol, fell and hit his head, and fell asleep in his backyard. He states he came into the hospital because he couldn't walk last night. Last alcohol drink was yesterday at noon. He states that he can go 6 to 7 months without drinking, however goes on 10 days of binge drinking. He states that he mostly starts drinking when he meets women, and has had a period of sobriety for 5 years. He states he never tells the women he dates that he has an issue with drinking alcohol, unsure why he doesn't tell them. He states that his period of sobriety was directly related to dating a woman who didn't drink alcohol. He states he started drinking heavily when he was 38 years old, when he started having marital issues with his at the time.He admits to feeling anxious, denies feeling depressed. He states he hasn' t slept in 48 hours. Denies suicidal or homicidal ideations. Denies feeling of paranoia. Denies visual or auditory hallucinations. Denies experiencing racing thoughts. He states that he attends AA meetings daily. PMH: denies PSH: diverticulitis in 1996 Family hx: no history of alcohol use. Social hx: denies smoking, no illicit drug use. (+) ETOH use - drinks tequila, red wine. Drinks 1 bottle of tequila daily. Lives with his father who has dementia. As per patient, he is not the primary caretaker resort of his father. 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 Meds: None Allergies: NKDA Past psychiatric hospitalizations: none Current Medications: Active Medications Generic Name Dose Route Start Last Admin Trade Name Freq PRN Reason Stop Dose Admin Sodium Chloride 1,000 mls @ 125 mls/hr 08/03/18 08:45 10/10/17 08:40 Sodium Chloride 0.9% IV 125 mls/hr .Q8H ILDEFONSO Administration Ibuprofen 400 mg 10/10/17 13:44 10/10/17 14:55 Motrin Tab PO 400 mg Q6 PRN Administration Headache Lorazepam 1 mg 10/10/17 13:53 10/10/17 14:58 Ativan IVP 1 mg Q4H PRN Administration Anxiety Past Psychiatric History - Past Psychiatric History Previous Treatment History: None Pertinent Medical Hx (Current Medical&Sleep Prob, Allergies): Allergies Allergy/AdvReac Type Severity Reaction Status Date / Time No Known Allergies Allergy Verified 10/01/17 21:49 No Known Home Med 09/30/17 Review of Systems - Psychiatric Psychiatric: Abnormal Sleep Pattern, Anxiety. absent: Auditory Hallucinations, Depression, Homicidal Ideation, Hopelessness, Irritability, Panic Attacks, Paranoia, Suicidal Ideation, Visual Hallucinations Mental Status Examination - Personal Presentation Personal Presentation: Looks older than stated age - Affect Affect: Constricted - Motor Activity Motor Activity: Calm - Reliability in Providing Information Reliability in Providing Information: Fair - Speech Speech: Organized - Mood Mood: Anxious - Formal Thought Process Formal Thought Process: No Impairment - Obsessions/Compulsions Obsessions: No Compulsions: No - Cognitive Functions Orientation: Person, Place, Situation, Time Sensorium: Alert Attention/Concentration: Attentive Estimate of Intelligence: Average Judgement: Imparied, as evidence by: Poor judgement Memory: Recent intact, as evidence by: Ability to recall events of the day - Risk Risk: Seizure, Withdrawal, Falls, Diminished functioning DSM 5 DX - DSM 5 DSM 5 Diagnosis: Alcohol use disorder Alcohol withdrawal - Recommended/Plan of Treatment Treatment Recommendations and Plan of Treatment: Ativan 1mg IVP Q4 PRN Folic acid 1mg PO Thiamine 100mg PO Multivitamin daily Continue to monitor Case discussed with Dr. Yonas Chapman, PGY1
[2017-10-10 15:33] LABS: BLOOD UREA NITROGEN 6 mg/dL (9-20)
[2017-10-10 15:34] LABS: ALBUMIN 2.8 g/dL (3.5-5.0); CALCIUM 6.5 mg/dl (8.6-10.4); GFR AFRICAN-AMERICAN > 60; GFR NON-AFRICAN AMERICAN > 60
[2017-10-10 15:35] LABS: ALT/SGPT 163 U/L (21-72); AST/SGOT 507 U/L (17-59); CK-MB 3.24 ng/mL (0.0-3.38)
[2017-10-10] MEDS ORDERED: Sodium Phosphate 15 MMOLE in Sodium Chloride 0.9% 250 ML IVPB ONE (15:50)
[2017-10-10] MEDS: Magnesium Sulfate 1 gm in D5W 1 GM/100 ML BAG IVPB SCH ×2 (16:01→16:53)
--- NOTE | 2017-10-10 16:04 | PCM.SEPTIC ---
<Jevon Randhawa - Last Filed: 10/10/17 16:37> Sepsis Progress Note - Reassessment Type Date of Evaluation: 10/10/17 Time of Evaluation: 08:30 Reassessment Type: Non-invasive reassessment - Non Invasive Reassessment Were the most recent vital sign reviewed: Yes Vital Sign (Latest): Temp Pulse Resp BP Pulse Ox 99.3 F 87 20 109/72 96 10/10/17 12:00 10/10/17 15:15 10/10/17 12:00 10/10/17 15:03 10/10/17 15:15 Cardiovascular: Yes: Tachycardia. No: Edema, Gallop, Murmur Respiratory: Yes: Normal Breath Sounds. No: Accessory Muscle Use, Crackles, Rales, Rhonchi, Wheezing, Respiratory Distress Capillary Refill: Normal (Less than 2 sec) Skin: Normal Color, Warm, Dry Was a passive leg raise performed or was a fluid challenge performed within 6 hrs of the initial fluid bolus: No Passive Leg Raise Result: Not Applicable Fluid Challenge performed: No Assessment and Plan - Assessment and Plan (Free Text) Assessment: This is a 50 year old male with PMH of EtOH abuse who presented to the ED via EMS with complaints of feeling unsteady and continuously falling after abruptly stopping alcohol consumption "yesterday (10/09) at lunch." In the ED, pt was noted to be tachycardic with an oral temperature of 100.1. 0636 Code sepsis was called. On evaluation pt is afebrile. VBG showed lactate of 7.6 Repeat ABG at 10:17 showed lactate of 1.[address] showed no intracranial bleed. Chronic changes (see report). EKG showed ST at 121, LBB. CXR showed not active pulmonary disease. Pt has multiple electrolyte abnormalities; repletion initiated, banana bag started in ED. continue IVF for elevated CPK. - f/u bmp, magnesium, phosphorous CIWA protocol for alcohol withdrawal Psych consult pending, recs appreciated. <Rahat Miranda - Last Filed: 10/10/17 17:16> Sepsis Progress Note - Non Invasive Reassessment Vital Sign (Latest): Temp Pulse Resp BP Pulse Ox 99.3 F 77 18 109/72 95 10/10/17 12:00 10/10/17 17:00 10/10/17 17:00 10/10/17 15:03 10/10/17 17:00 Attending/Attestation - Attestation I have personally seen and examined this patient.: Yes I have fully participated in the care of the patient.: Yes I have reviewed all pertinent clinical information, including history, physical exam and plan: Yes
[2017-10-11] MEDS: Sodium Chloride 0.9% 1,000 ML IV SCH ×3 (00:55→18:39)
[2017-10-11 06:26] LABS: BASO % 0.7 % (0.0-2.0); EOS % 1.8 % (0.0-4.0); HEMOGLOBIN 10.8 g/dL (12.0-18.0); LYMPH # 0.4 K/uL (1.0-4.3); MEAN CELL VOLUME 94.6 fL (80.0-94.0); MEAN CORPUSCULAR HEMOGLOBIN 33.2 pg (27.0-31.0); MEAN PLATELET VOLUME 9.8 fL (7.2-11.7); MONO # 0.2 K/uL (0.0-0.8); MONO % 9.3 % (0.0-10.0); NEUT # 1.7 K/uL (1.8-7.0); NEUT % 70.2 % (50.0-75.0); NRBC % 0.2 % (0.0-2.0); RBC 3.25 Mil/uL (4.40-5.90); RED CELL DISTRIBUTION WIDTH 14.6 % (11.5-14.5); WHITE BLOOD COUNT 2.4 K/uL (4.8-10.8)
[2017-10-11 06:44] LABS: ALB/GLOB RATIO 1.1 (1.0-2.1); ALBUMIN 2.8 g/dL (3.5-5.0); ALT/SGPT 154 U/L (21-72); AST/SGOT 379 U/L (17-59); BLOOD UREA NITROGEN 6 mg/dL (9-20); CALCIUM 6.4 mg/dl (8.6-10.4); GFR AFRICAN-AMERICAN > 60; GFR NON-AFRICAN AMERICAN > 60
[2017-10-11] MEDS: Multiple Vitamins Tab PO SCH (09:04)
[2017-10-11] MEDS: Magnesium Sulfate 1 gm in D5W 1 GM/100 ML BAG IVPB SCH ×5 (11:08→23:59)
--- NOTE | 2017-10-11 13:39 | CP.CCUPN ---
CCU Subjective - Physician Review Events Since Last Encounter (Free Text): 10/11/17 13:38 51-year-old male ABUSE admitted to the hospital with the DTs. Patient in the past had a history of diverticulosis, appendectomy in the past. History of alcoholic abuse. Complaining of shaking and sweating now. Patient able to sleep well. He is eating well. Vital signs stable. Chest good air entry regular heart sound nontender abdomen Complaining of minimal shaking Labs reviewed Low potassium, low magnesium level noted Will supplement the electronic. Continue to watch for DTs. Added Librium. If stable can be discharged tomorrow to the floor. Critical Care Time Spent (in minutes): 45 CCU Objective - Vital Signs / Intake & Output Vital Signs (Last 4 hours): Vital Signs Temp Pulse Resp BP Pulse Ox 10/11/17 13:04 82 13 105/62 98 10/11/17 12:04 77 12 101/58 L 96 10/11/17 12:00 98.9 F 85 12 96 10/11/17 11:04 79 16 105/64 10/11/17 10:04 88 17 112/71 10/11/17 10:00 93 H 9 L Intake and Output (Last 8hrs): Intake & Output 10/10/17 10/11/17 10/11/17 22:59 06:59 14:59 Intake Total 1950.0 1400 1585 Output Total 1400 1075 1000 Balance 550.0 325 585 Weight 183 lb Intake: Intake, IV Amount 1650.0 1000 1225 Right Upper arm 375 1000 1225 left leg 500.0 right hand 775 Oral 300 400 360 Output: Urine 1400 1075 1000 Urine, Voided 1400 1075 1000 Other: # Voids Urine, Voided 1 1 1 - Medications Active Medications: Active Medications Generic Name Dose Route Start Last Admin Trade Name Freq PRN Reason Stop Dose Admin Chlordiazepoxide 10 mg 10/11/17 14:00 10/11/17 13:30 Librium PO 10/13/17 14:01 10 mg Q8 [facility]ON[facility] Administration Famotidine 20 mg 10/11/17 11:00 10/11/17 11:08 Pepcid IVP 20 mg Q12 [facility] Administration Folic Acid 1 mg 10/11/17 10:00 10/11/17 09:03 Folic Acid PO 1 mg DAILY [facility] Administration Sodium Chloride 1,000 mls @ 125 mls/hr 10/10/17 08:45 10/11/17 09:03 Sodium Chloride 0.9% IV 125 mls/hr .Q8H [facility]ON[facility] Administration Potassium Chloride 20 meq in 100 mls @ 50 mls/hr 10/11/17 12:00 10/11/17 12: 25 Potassium Chloride 20 Meq/100 Ml IVPB 10/11/17 17:59 50 mls/hr Q2 [facility]ON[facility] Administration Lorazepam 1 mg 10/10/17 13:53 10/11/17 10:14 Ativan IVP 1 mg Q4H PRN Administration Anxiety Multivitamins 1 tab 10/11/17 10:00 10/11/17 09:04 Hexavitamin PO 1 tab DAILY [facility]ON[facility] Administration Thiamine HCl 100 mg 10/11/17 10:00 10/11/17 09:03 Vitamin B1 Tab PO 100 mg DAILY IL[facility]ONSO Administration - Patient Studies Lab Studies: Microbiology Studies 10/10/17 10:27 MRSA Culture (Admit) - Final Naris MRSA NOT DETECTED Lab Studies 10/11/17 10/11/17 10/10/17 Range/Units 06:23 06:22 14:43 WBC 2.4 L D (4.8-10.8) K/uL RBC 3.25 L (4.40-5.90) Mil/uL Hgb 10.8 L D (12.0-18.0) g/dL Hct 30.8 L (35.0-51.0) % MCV 94.6 H (80.0-94.0) fL MCH 33.2 H (27.0-31.0) pg MCHC 35.0 (33.0-37.0) g/dL RDW 14.6 H (11.5-14.5) % Plt Count 28 L* D (130-400) K/uL MPV 9.8 (7.2-11.7) fL Neut % (Auto) 70.2 (50.0-75.0) % Lymph % (Auto) 18.0 L (20.0-40.0) % Boundary % (Auto) 9.3 (0.0-10.0) % Eos % (Auto) 1.8 (0.0-4.0) % Baso % (Auto) 0.7 (0.0-2.0) % Neut # (Auto) 1.7 L (1.8-7.0) K/uL Lymph # (Auto) 0.4 L (1.0-4.3) K/uL Boundary # (Auto) 0.2 (0.0-0.8) K/uL Eos # (Auto) 0.0 (0.0-0.7) K/uL Baso # (Auto) 0.0 (0.0-0.2) K/uL Sodium 132 133 (132-148) mmol/L Potassium 2.8 L 3.5 L (3.6-5.2) mmol/L Chloride 95 L 95 L (98-107) mmol/L Carbon Dioxide 29 32 H (22-30) mmol/L Anion Gap 12 10 (10-20) BUN 6 L 6 L (9-20) mg/dL Creatinine 0.5 L 0.6 L (0.8-1.5) mg/dL Est GFR ( Amer) > 60 > 60 Est GFR (Non-Af Amer) > 60 > 60 Random Glucose 119 H 179 H (75-110) mg/dL Calcium 6.4 L 6.5 L (8.6-10.4) mg/dl Phosphorus 2.6 1.8 L (2.5-4.5) mg/dL Magnesium 1.1 L 1.0 L* D (1.6-2.3) mg/dL Total Bilirubin 4.7 H 4.3 H (0.2-1.3) mg/dL AST 379 H D 507 H (17-59) U/L ALT 154 H 163 H D (21-72) U/L Alkaline Phosphatase 86 86 (38-126) U/L Total Creatine Kinase 1561 H 2777 H (55-170) U/L CK-MB (Mass) 3.24 (0.0-3.38) ng/mL Troponin I 0.0480 (0.00-0.120) ng/mL Total Protein 5.4 L 5.6 L (6.3-8.3) g/dL Albumin 2.8 L 2.8 L D (3.5-5.0) g/dL Globulin 2.5 2.7 (2.2-3.9) gm/dL Albumin/Globulin Ratio 1.1 1.0 (1.0-2.1) Laboratory Results - last 24 hr 10/10/17 10/11/17 10/11/17 14:43 06:22 06:23 WBC 2.4 L D RBC 3.25 L Hgb 10.8 L D Hct 30.8 L MCV 94.6 H MCH 33.2 H MCHC 35.0 RDW 14.6 H Plt Count 28 L* D MPV 9.8 Neut % (Auto) 70.2 Lymph % (Auto) 18.0 L Boundary % (Auto) 9.3 Eos % (Auto) 1.8 Baso % (Auto) 0.7 Neut # (Auto) 1.7 L Lymph # (Auto) 0.4 L Boundary # (Auto) 0.2 Eos # (Auto) 0.0 Baso # (Auto) 0.0 Sodium 133 132 Potassium 3.5 L 2.8 L Chloride 95 L 95 L Carbon Dioxide 32 H 29 Anion Gap 10 12 BUN 6 L 6 L Creatinine 0.6 L 0.5 L Est GFR ( Amer) > 60 > 60 Est GFR (Non-Af Amer) > 60 > 60 Random Glucose 179 H 119 H Calcium 6.5 L 6.4 L Phosphorus 1.8 L 2.6 Magnesium 1.0 L* D 1.1 L Total Bilirubin 4.3 H 4.7 H AST 507 H 379 H D ALT 163 H D 154 H Alkaline Phosphatase 86 86 Total Creatine Kinase 2777 H 1561 H CK-MB (Mass) 3.24 Troponin I 0.0480 Total Protein 5.6 L 5.4 L Albumin 2.8 L D 2.8 L Globulin 2.7 2.5 Albumin/Globulin Ratio 1.0 1.1 EKG/Cardiology Studies: Cardiology / EKG Studies 10/11/17 04:00 EKG [ELECTROCARDIOGRAM] Routine Comment: Mode Of Transportation: Reason For Exam: eletrolyte abnormalities Critical Care Progress Note - Nutrition Nutrition: Nutrition Category Date Time Status Regular Diet [DIET] Diets 10/10/17 Breakfast Active
--- NOTE | 2017-10-11 14:52 | CARD ---
APPROVED REPORT Date of service: 10/10/2017 EKG Measurement Heart [id number] <Conclusion> Sinus tachycardia Left bundle branch block Abnormal ECG
[2017-10-11 20:54] LABS: BASO % 0.4 % (0.0-2.0); EOS % 1.4 % (0.0-4.0); HEMOGLOBIN 11.3 g/dL (12.0-18.0); LYMPH # 0.4 K/uL (1.0-4.3); LYMPH % 13.1 % (20.0-40.0); MEAN CELL VOLUME 94.4 fL (80.0-94.0); MEAN CORPUSCULAR HEMOGLOBIN 32.6 pg (27.0-31.0); MEAN CORPUSCULAR HGB CONC 34.6 g/dL (33.0-37.0); MEAN PLATELET VOLUME 8.8 fL (7.2-11.7); MONO # 0.4 K/uL (0.0-0.8); MONO % 10.6 % (0.0-10.0); NEUT # 2.5 K/uL (1.8-7.0); NEUT % 74.5 % (50.0-75.0); NRBC % 0.1 % (0.0-2.0); RBC 3.46 Mil/uL (4.40-5.90); RED CELL DISTRIBUTION WIDTH 14.7 % (11.5-14.5); WHITE BLOOD COUNT 3.4 K/uL (4.8-10.8)
[2017-10-11 21:15] LABS: ALB/GLOB RATIO 1.1 (1.0-2.1); ALT/SGPT 162 U/L (21-72); AST/SGOT 377 U/L (17-59); BLOOD UREA NITROGEN 5 mg/dL (9-20); GFR AFRICAN-AMERICAN > 60; GFR NON-AFRICAN AMERICAN > 60
[2017-10-12] MEDS: Sodium Chloride 0.9% 1,000 ML IV SCH ×4 (00:45→16:38)
[2017-10-12 06:27] LABS: BASO % 0.8 % (0.0-2.0); EOS # 0.1 K/uL (0.0-0.7); EOS % 1.8 % (0.0-4.0); HEMOGLOBIN 11.5 g/dL (12.0-18.0); LYMPH # 0.6 K/uL (1.0-4.3); LYMPH % 17.6 % (20.0-40.0); MEAN CELL VOLUME 94.7 fL (80.0-94.0); MEAN CORPUSCULAR HGB CONC 34.8 g/dL (33.0-37.0); MEAN PLATELET VOLUME 9.3 fL (7.2-11.7); MONO # 0.3 K/uL (0.0-0.8); MONO % 10.7 % (0.0-10.0); NEUT # 2.2 K/uL (1.8-7.0); NEUT % 69.1 % (50.0-75.0); NRBC % 0.1 % (0.0-2.0); RBC 3.47 Mil/uL (4.40-5.90); RED CELL DISTRIBUTION WIDTH 14.8 % (11.5-14.5); WHITE BLOOD COUNT 3.2 K/uL (4.8-10.8)
[2017-10-12 06:37] LABS: ALB/GLOB RATIO 1.1 (1.0-2.1); ALBUMIN 3.1 g/dL (3.5-5.0); ALT/SGPT 153 U/L (21-72); AST/SGOT 289 U/L (17-59); BLOOD UREA NITROGEN 3 mg/dL (9-20); GFR AFRICAN-AMERICAN > 60; GFR NON-AFRICAN AMERICAN > 60
[2017-10-12] MEDS: Magnesium Sulfate 1 gm in D5W 1 GM/100 ML BAG IVPB SCH ×2 (09:09→09:34)
[2017-10-12] MEDS: Multiple Vitamins Tab PO SCH (09:09)
[2017-10-12] MEDS: Potassium Chloride 20 mEq ER Tab PO SCH ×2 (09:09→12:58)
--- NOTE | 2017-10-12 09:55 | CP.PCM.PN ---
Subjective - Date & Time of Evaluation Date of Evaluation: 10/12/17 Time of Evaluation: 09:45 - Subjective Subjective: Patient alert and oriented, no tremors, has not walked since hospitalized, labs noticed, hypokalemia, low mag, tansamintis, rhabdo, thrombocytopenia. He has not walked since hospitalization. Appetite still poor. As per the patient h/o alcoholism, has recently stopped drinking but stated back a month ago, stooped again 3 days prior to hospitalization was drinking one 750 of taqella bottle daily. Objective - Vital Signs/Intake and Output Vital Signs (last 24 hours): Temp Pulse Resp BP Pulse Ox 99.1 F 76 10 L 108/69 92 L 10/12/17 00:00 10/12/17 07:04 10/12/17 07:04 10/12/17 07:04 10/11/17 20:04 Intake and Output: 10/12/17 10/12/17 06:59 18:59 Intake Total 1850 125 Output Total 2875 Balance -1025 125 - Medications Medications: Current Medications Chlordiazepoxide (Librium) 10 mg PO Q8 [facility] Stop: 10/13/17 14:01 Last Admin: 10/12/17 05:24 Dose: 10 mg Famotidine (Pepcid) 20 mg IVP Q12 [facility] Last Admin: 10/12/17 09:11 Dose: 20 mg Folic Acid (Folic Acid) 1 mg PO DAILY [facility] Last Admin: 10/12/17 09:09 Dose: 1 mg Sodium Chloride (Sodium Chloride 0.9%) 1,000 mls @ 125 mls/hr IV .Q8H [facility] Last Admin: 10/12/17 09:33 Dose: 125 mls/hr Lorazepam (Ativan) 1 mg IVP Q4H PRN PRN Reason: Anxiety Last Admin: 10/12/17 09:09 Dose: 1 mg Multivitamins (Hexavitamin) 1 tab PO DAILY [facility] Last Admin: 10/12/17 09:09 Dose: 1 tab Potassium Chloride (K-Dur 20 Meq Er Tab) 40 meq PO Q4H ILDEFONSO Stop: 10/12/17 12:31 Last Admin: 10/12/17 09:09 Dose: 40 meq Thiamine HCl (Vitamin B1 Tab) 100 mg PO DAILY [facility] Last Admin: 10/12/17 09:09 Dose: 100 mg - Labs Labs: 10/12/17 06:17 10/12/17 06:17 PT 19.1 SECONDS (9.7-12.2) H 10/10/17 07:29 INR 1.7 10/10/17 07:29 APTT 26 SECONDS (21-34) 10/10/17 07:29 - Additional Findings Additional findings: * HEENT TOYIN * Neck supple * Chest clear * CVS regular, no gallop or rub * PA soft, nt bs present * Ext no edema * Skin normal turgor * [employer]END[employer] alert oriented x3 no fnd, no tremors. Assessment and Plan - Assessment and Plan (Free Text) Assessment: Alcohol withdrawal improved, not in DT's and low risk on current regime Hypokalemia and hypomagnesemia Rhabdo Transaminitis Thromobocytopenia Plan: Down grade to floor May need PT/OT, w/u for tranaminitis, usg, hepatitis panel Ordered mag and kcl Spoke to PMD See orders for detail.
--- NOTE | 2017-10-12 10:02 | CP.PCM.PN ---
Subjective - Date & Time of Evaluation Date of Evaluation: 10/12/17 Time of Evaluation: 09:59 - Subjective Subjective: feels weeke no tremors platlet low Objective - Vital Signs/Intake and Output Vital Signs (last 24 hours): Temp Pulse Resp BP Pulse Ox 99.1 F 76 10 L 108/69 92 L 10/12/17 00:00 10/12/17 07:04 10/12/17 07:04 10/12/17 07:04 10/11/17 20:04 Intake and Output: 10/12/17 10/12/17 06:59 18:59 Intake Total 1850 125 Output Total 2875 Balance -1025 125 - Medications Medications: Current Medications Chlordiazepoxide (Librium) 10 mg PO Q8 [facility] Stop: 10/13/17 14:01 Last Admin: 10/12/17 05:24 Dose: 10 mg Famotidine (Pepcid) 20 mg IVP Q12 [facility] Last Admin: 10/12/17 09:11 Dose: 20 mg Folic Acid (Folic Acid) 1 mg PO DAILY [facility] Last Admin: 10/12/17 09:09 Dose: 1 mg Sodium Chloride (Sodium Chloride 0.9%) 1,000 mls @ 125 mls/hr IV .Q8H [facility] Last Admin: 10/12/17 09:33 Dose: 125 mls/hr Lorazepam (Ativan) 1 mg IVP Q4H PRN PRN Reason: Anxiety Last Admin: 10/12/17 09:09 Dose: 1 mg Multivitamins (Hexavitamin) 1 tab PO DAILY [facility] Last Admin: 10/12/17 09:09 Dose: 1 tab Potassium Chloride (K-Dur 20 Meq Er Tab) 40 meq PO Q4H ILDEFONSO Stop: 10/12/17 12:31 Last Admin: 10/12/17 09:09 Dose: 40 meq Thiamine HCl (Vitamin B1 Tab) 100 mg PO DAILY [facility] Last Admin: 10/12/17 09:09 Dose: 100 mg - Labs Labs: 10/12/17 06:17 10/12/17 06:17 PT 19.1 SECONDS (9.7-12.2) H 10/10/17 07:29 INR 1.7 10/10/17 07:29 APTT 26 SECONDS (21-34) 10/10/17 07:29 - Constitutional Appears: Non-toxic - Head Exam Head Exam: NORMAL INSPECTION - Eye Exam Eye Exam: Normal appearance Pupil Exam: NORMAL ACCOMODATION - ENT Exam ENT Exam: Normal Exam - Neck Exam Neck Exam: Full ROM - Respiratory Exam Respiratory Exam: NORMAL BREATHING PATTERN - Cardiovascular Exam Cardiovascular Exam: REGULAR RHYTHM - GI/Abdominal Exam GI & Abdominal Exam: Normal Bowel Sounds - Rectal Exam Rectal Exam: Deferred - Extremities Exam Extremities Exam: Normal Inspection - Back Exam Back Exam: NORMAL INSPECTION - Neurological Exam Neurological Exam: Awake, Oriented x3 - Psychiatric Exam Psychiatric exam: Normal Affect - Skin Skin Exam: Normal Color Assessment and Plan - Assessment and Plan (Free Text) Assessment: s/p alchol abuse alc withdrwal hpo kaleamia hypomagneseamia weekness Plan: cont as per orders
--- NOTE | 2017-10-12 14:29 | US ---
Date of service: 10/12/2017 HISTORY: transamintis COMPARISON: None. TECHNIQUE: Sonographic evaluation of the right upper quadrant of the abdomen. FINDINGS: LIVER: Measures 18.7 cm in length. Normal echogenicity of the liver parenchyma. No mass. No intrahepatic bile duct dilatation. GALLBLADDER: Unremarkable. No gallstones. COMMON BILE DUCT: Measures 2.9 mm. No stones. No dilatation. PANCREAS: Overlying bowel gas obscures the majority of the pancreas with a limited portion of the body appear unremarkable. RIGHT KIDNEY: Measures 13.5 cm in length. Normal echogenicity. No calculus, mass, or hydronephrosis. AORTA: No aneurysmal dilatation. IVC: Unremarkable. OTHER FINDINGS: None . IMPRESSION: There is limiting imaging of the pancreas due to overlying bowel gas with remainder of the limited abdomen ultrasound exam unremarkable appearing otherwise.
[2017-10-13] MEDS: Sodium Chloride 0.9% 1,000 ML IV SCH ×2 (01:22→12:02)
[2017-10-13 06:15] LABS: BASO % 0.8 % (0.0-2.0); EOS # 0.1 K/uL (0.0-0.7); EOS % 1.9 % (0.0-4.0); HEMOGLOBIN 10.9 g/dL (12.0-18.0); LYMPH # 0.5 K/uL (1.0-4.3); LYMPH % 18.8 % (20.0-40.0); MEAN CELL VOLUME 96.8 fL (80.0-94.0); MEAN CORPUSCULAR HGB CONC 34.1 g/dL (33.0-37.0); MEAN PLATELET VOLUME 10.1 fL (7.2-11.7); MONO # 0.3 K/uL (0.0-0.8); MONO % 10.1 % (0.0-10.0); NEUT % 68.4 % (50.0-75.0); NRBC % 0.1 % (0.0-2.0); RBC 3.29 Mil/uL (4.40-5.90); RED CELL DISTRIBUTION WIDTH 15.2 % (11.5-14.5); WHITE BLOOD COUNT 2.9 K/uL (4.8-10.8)
[2017-10-13 06:39] LABS: ALB/GLOB RATIO 1.1 (1.0-2.1); ALT/SGPT 139 U/L (21-72); AST/SGOT 214 U/L (17-59); BLOOD UREA NITROGEN 5 mg/dL (9-20); CALCIUM 7.6 mg/dl (8.6-10.4); GFR AFRICAN-AMERICAN > 60; GFR NON-AFRICAN AMERICAN > 60
[2017-10-13 08:14] LABS: HEPATITIS B SURFACE AG Negative (NEGATIVE)
[2017-10-13 08:20] LABS: HEPATITIS A IGM NEGATIVE (NEGATIVE); HEPATITIS B CORE AB NEGATIVE (NEGATIVE)
[2017-10-13 08:31] LABS: HEPATITIS C ANTIBODY NEGATIVE (NEGATIVE)
[2017-10-13] MEDS: Multiple Vitamins Tab PO SCH (09:03)
--- NOTE | 2017-10-13 12:09 | CARD ---
APPROVED REPORT Date of service: 10/11/2017 EKG Measurement Heart [id number] <Conclusion> Normal sinus rhythm Left axis deviation Left bundle branch block Abnormal ECG
[2017-10-13] MEDS ORDERED: Potassium Chloride 20 mEq ER Tab PO ONE (12:30)
[2017-10-13] MEDS ORDERED: Magnesium Sulfate 1 gm in D5W 1 GM/100 ML BAG IVPB ONE (13:00)
[2017-10-13] MEDS ORDERED: Bacitracin Ointment 30 GM TUBE TOP SCH (14:30)
[2017-10-13] MEDS ORDERED: Bacitracin 500 Units/gm Oint Foilpak UD TOP SCH (15:00)
[2017-10-13] MEDS ORDERED: Sodium Chloride 0.9% 1,000 ML IV ONE (16:25)
[2017-10-13 16:53] VITALS: PULSE 73; RESP 16; TEMP 98.9; O2SAT 97
[2017-10-13 17:20] VITALS: BP 113/76
--- NOTE | 2017-10-13 19:17 | CP.PCM.PN ---
Subjective - Date & Time of Evaluation Date of Evaluation: 10/13/17 Time of Evaluation: 19:15 - Subjective Subjective: feels beter vss lung cleare [id number] abd soft lower ext normal ambulatory Objective - Vital Signs/Intake and Output Vital Signs (last 24 hours): Temp Pulse Resp BP Pulse Ox 98.9 F 73 16 113/76 97 10/13/17 16:00 10/13/17 16:00 10/13/17 16:00 10/13/17 17:00 10/13/17 16:00 Intake and Output: 10/13/17 10/14/17 18:59 06:59 Intake Total 2175 Output Total 882 Balance 1293 - Medications Medications: Current Medications Bacitracin (Bacitracin) 0 ea TOP DAILY [facility] Last Admin: 10/13/17 15:15 Dose: 1 ea Famotidine (Pepcid) 20 mg IVP Q12 [facility] Last Admin: 10/13/17 09:03 Dose: 20 mg Folic Acid (Folic Acid) 1 mg PO DAILY [facility] Last Admin: 10/13/17 09:03 Dose: 1 mg Sodium Chloride (Sodium Chloride 0.9%) 1,000 mls @ 125 mls/hr IV .Q8H [facility] Stop: 10/14/17 00:24 Last Admin: 10/13/17 16:30 Dose: 125 mls/hr Lorazepam (Ativan) 1 mg IVP Q4H PRN PRN Reason: Anxiety Last Admin: 10/13/17 17:17 Dose: 1 mg Multivitamins (Hexavitamin) 1 tab PO DAILY [facility] Last Admin: 10/13/17 09:03 Dose: 1 tab Thiamine HCl (Vitamin B1 Tab) 100 mg PO DAILY [facility] Last Admin: 10/13/17 09:03 Dose: 100 mg - Labs Labs: 10/13/17 06:08 10/13/17 06:08 PT 19.1 SECONDS (9.7-12.2) H 10/10/17 07:29 INR 1.7 10/10/17 07:29 APTT 26 SECONDS (21-34) 10/10/17 07:29 Assessment and Plan - Assessment and Plan (Free Text) Assessment: withdrwal improved pancytopeania improving cont as per orders pt anxious to discharge
--- NOTE | 2017-10-15 12:17 | CARD ---
APPROVED REPORT Date of service: 10/10/2017 EKG Measurement Heart [id number] <Conclusion> Wide QRS tachycardia Left bundle branch block Abnormal ECG
--- NOTE | 2017-10-27 09:37 | DS ---
Copied To: Christi Flores MD Attending MD: Christi Flores MD The patient came into the emergency room on 10/10/2017, and he was drinking alcohol, and the last drink was the night before he come here, and he came in with chest pain started today, and he has temperature of 100.1 on arrival, and his blood pressure was 138/99. Rest of the exam, he was alert, oriented, and comfortable. Normocephalic. His lung was clear. His blood work showed that he has normal CBC and normal chemistry except sugar was 142. He was admitted for rule out of sepsis and alcohol withdrawal; hypomagnesemia and hypokalemia, he has replacement of both; and he was seen also by a psychiatric consultation, and his temperature was followed up 99.3. He was started on antibiotics, and he has wound cleaning for the abrasions he has. He was feeling a little bit weak, but there were no tremors or withdrawals. His vital signs were stable except low-grade temperature. He was already on Librium and Pepcid, folic acid, IV fluids, lorazepam, multiple vitamins, potassium, thiamine. His potassium was corrected and his magnesium, and he was improving. His lung was clear. He was comfortable. He . His vital signs were okay, and he was anxious to go home. I think he was discharged on that day he signed against medical advice, and he left on 10/13/2017. FINAL DIAGNOSES: Alcohol withdrawal, low-grade fever, generalized weakness, slight anemia. Christi Flores MD
== END 2017-10-13 20:10 | disposition left against medical advice (07) | DRG 894 ==
LOC: C.ER 05:22 → C.9E 07:14 → C.9I 07:39
PROVIDERS: ADMIT Internal Medicine; ATTEND Internal Medicine
PROC: HZ2ZZZZ Detoxification Services for Substance Abuse Treatment (ICD-10-PCS; principal; 2017-10-10)
DX: F10.230 Alcohol dependence with withdrawal, uncomplicated (principal); D61.818 Other pancytopenia; M62.82 Rhabdomyolysis; E83.42 Hypomagnesemia; Y90.0 Blood alcohol level of less than 20 mg/100 ml; S00.81XA Abrasion of other part of head, initial encounter; S50.312A Abrasion of left elbow, initial encounter; W19.XXXA Unspecified fall, initial encounter; E83.51 Hypocalcemia; E87.6 Hypokalemia; E83.39 Other disorders of phosphorus metabolism; F41.9 Anxiety disorder, unspecified; R07.9 Chest pain, unspecified; R00.0 Tachycardia, unspecified; D64.9 Anemia, unspecified; R50.9 Fever, unspecified